=== PATIENT | female | born 1965 | race Two or more races ===

== ENCOUNTER 2018-05-01 14:13 | Emergency (ER) | payer MEDICARE, OTHER ==
[~2018-05-01] VITALS: Ht 165.1 cm; Wt 99.8 kg
[2018-05-01 14:36] VITALS: BP 130/80
--- NOTE | 2018-05-01 15:35 | Emergency Room Report ---
History of Present Illness General Chief Complaint: Female Urogenital Problems Source: Patient Present Illness HPI 52-year-old female presents to the emergency department complaining of urinary urgency and dysuria 3 days. Patient also reports that today while at work she had a presyncope feeling and felt palpitations. Patient denies history of cardiac problems she denies nausea, vomiting, shortness of breath, difficulty breathing, recent travel or ill contacts. Patient denies chest pain. Patient denies abdominal pain or tenderness she denies hematuria she denies history of diabetes. Denies polydipsia. Allergies: Uncoded Allergies: ERYTHROMYCIN (Allergy, Unknown, 05/01/18) SULFA (Allergy, Unknown, 05/01/18) Patient History Past Surgical History: none Pertinent Family History: none Immunizations: UTD Reviewed Nursing Documentation: PMH: Agreed; PSxH: Agreed Nursing Documentation-PMH Past Medical History: No History, Except For Hx Cardiac Problems: No - OSTEO ARTHRITIS History Of Psychiatric Problem: Yes - BI-POLAR Hx Seizures: Yes Review of Systems All Other Systems: negative except mentioned in HPI Physical Exam Vital Signs Date Time Temp Pulse Resp B/P (MAP) Pulse Ox O2 Delivery O2 Flow Rate FiO2 05/01/18 14:28 98.4 84 18 130/80 94 Room Air 98.4 Sp02 EP Interpretation: reviewed, normal General Appearance: no apparent distress, alert, GCS 15, non-toxic Head: normocephalic, atraumatic Eyes: bilateral eye normal inspection, bilateral eye PERRL ENT: hearing grossly normal, normal voice Neck: full range of motion Respiratory: chest non-tender, lungs clear, normal breath sounds, speaking full sentences Cardiovascular #1: regular rate, rhythm, normal capillary refill Gastrointestinal: normal bowel sounds, non tender, soft Rectal: deferred Genitourinary: normal inspection, no CVA tenderness Musculoskeletal: back normal, gait/station normal, normal range of motion, non- tender Neurologic: alert, oriented x3, responsive, motor strength/tone normal, sensory intact, normal gait, speech normal, grossly normal Psychiatric: judgement/insight normal Skin: normal color, no rash, warm/dry, well hydrated Medical Decision Making PA Attestation Dr. Edgar is my supervising Physician whom patient management has been discussed with. Diagnostic Impression: Primary Impression: Urinary frequency Additional Impressions: UTI (urinary tract infection) Qualified Codes: N30.00 - Acute cystitis without hematuria Palpitations Dysuria ER Course 52-year-old female presents to the emergency department complaining of urinary urgency and dysuria 3 days. Patient also reports that today while at work she had a presyncope feeling and felt palpitations. Patient denies history of cardiac problems she denies nausea, vomiting, shortness of breath, difficulty breathing, recent travel or ill contacts. Patient denies chest pain. Patient denies abdominal pain or tenderness she denies hematuria she denies history of diabetes. Denies polydipsia. Ddx considered but are not limited to UTi , Pyelo, STI, Stone, Cystitis Vital signs: are WNL, pt. is afebrile H&PE are most consistent with UTI ORDERS: - UA labs are attached -EKG : 74 NSR ED INTERVENTIONS: -Pyridium PO DISCHARGE: At this time pt. is stable for d/c to home. Will provide printed patient care instructions, and any necessary prescriptions. Care plan and follow up instructions have been discussed with the patient prior to discharge. Labs Test 05/01/18 16:20 Urine Color Yellow Urine Appearance Cloudy Urine pH 7 (4.5-8.0) Urine Specific Staples 1.010 (1.005-1.035) Urine Protein 2+ (NEGATIVE) Urine Glucose (UA) Negative (NEGATIVE) Urine Ketones 1+ (NEGATIVE) Urine Occult Blood 1+ (NEGATIVE) Urine Nitrite Negative (NEGATIVE) Urine Bilirubin Negative (NEGATIVE) Urine Urobilinogen Normal MG/DL (0.0-1.0) Urine Leukocyte Esterase 3+ (NEGATIVE) Urine RBC 2-4 /HPF (0 - 2) Urine WBC 30-40 /HPF (0 - 2) Urine Squamous Epithelial Cells Many /LPF (NONE/OCC) Urine Bacteria Many /HPF (NONE) EKG Diagnostic Results EP Interpretation: Dr. Edgar Rate: normal - 74 bpm Rhythm: NSR ST Segments: no acute changes ASA given to the pt in ED: No PA Scribe Text This Interpretation was scribed by RUSTY Cobos. Last Vital Signs Date Time Temp Pulse Resp B/P (MAP) Pulse Ox O2 Delivery O2 Flow Rate FiO2 05/01/18 14:36 98.4 84 18 130/80 94 Room Air 98.4 Disposition: HOME, SELF-CARE Condition: Stable Scripts Phenazopyridine Hcl* (PYRIDIUM*) 200 Mg Tablet 200 MG ORAL THREE TIMES A DAY, #9 TAB 0 Refills Prov: Claudette Cobos 05/01/18 Nitrofurantoin Monohyd/M-Cryst* (MACROBID 100 MG*) 100 Mg Capsule 100 MG ORAL EVERY 12 HOURS for 5 Days, #10 CAP Prov: Claudette Cobos 05/01/18 Referrals: [facility] (PCP) Patient Instructions: Urinary Tract Infection Additional Instructions: Take medications as directed. Follow up with a Primary Care Provider in 3-5 days, even if your symptoms have resolved. --Please review list of primary care clinics, if you do not already have a primary care provider Return sooner to ED if new symptoms occur, or current symptoms become worse. - Please note that this Emergency Department Report was dictated using [employer]gis application developer technology software, occasionally this can lead to erroneous entry secondary to interpretation by the dictation equipment. Claudette Cobos May 01, 2018 15:35
[2018-05-01] MEDS ORDERED: Phenazopyridine 200mg tab ORAL ONE (15:45)
[2018-05-01 17:01] LABS: APPEARANCE,URINE CLOUDY; BILIRUBIN, URINE NEGATIVE (NEGATIVE); COLOR,URINE YELLOW; GLUCOSE, URINE (UA) NEGATIVE (NEGATIVE); KETONES,URINE 1+ (NEGATIVE); LEUKOCYTE ESTERASE ,URINE 3+ (NEGATIVE); NITRITE,URINE NEGATIVE (NEGATIVE); PH,URINE 7 (4.5-8.0); PROTEIN,URINE 2+ (NEGATIVE); UROBILINOGEN,URINE NORMAL MG/DL (0.0-1.0)
[2018-05-01] MEDS ORDERED: PHENAZOPYRIDIN200 MG ORAL (17:04)
[2018-05-01] MEDS ORDERED: NITROFURANTOIN100 M2 ORAL (17:04)
[2018-05-01 18:10] VITALS: BP 139/73
[2018-05-01 18:14] VITALS: BP 139/73
--- NOTE | 2018-05-02 12:20 | Cardiology Report ---
APPROVED REPORT EKG Measurement Heart [id number] Normal sinus rhythm Normal ECG
[2018-05-02] MEDS ORDERED: PHENAZOPYRIDIN200 MG ORAL (12:55)
== END 2018-05-01 18:16 | disposition home or self-care (01) ==
LOC: EMR 14:41
DX: N39.0 Urinary tract infection, site not specified (principal); R00.2 Palpitations
CPT/HCPCS: 81003; 87086; 93005; 99284

== ENCOUNTER 2018-05-16 14:22 | Emergency (ER) | payer MEDICARE, OTHER ==
[~2018-05-16] VITALS: Ht 165.1 cm; Wt 99.8 kg
[~2018-05-16 14:22] MED LIST: NITROFURANTOIN100 M2 ORAL; PHENAZOPYRIDIN200 MG ORAL
[2018-05-16 14:40] VITALS: BP 115/73
--- NOTE | 2018-05-16 15:02 | Emergency Room Report ---
History of Present Illness General Chief Complaint: Upper Respiratory Illness Source: Patient Present Illness HPI 32-year-old female presents emergency department complaining of nasal congestion , rhinorrhea, cough with significant amount of mucus. Patient denies fevers, chills , history of asthma/COPD. Pt. denies recent travel, ill contacts, neck pain/stiffness, or photophobia. denies ST or ear pain. Allergies: Uncoded Allergies: EGGPLANT (Allergy, Unknown, 05/16/18) ERYTHROMYCIN (Allergy, Unknown, 05/01/18) SULFA (Allergy, Unknown, 05/01/18) Patient History Past Medical History: see triage record Past Surgical History: none Pertinent Family History: none Last Menstrual Period: 11/21/2014 Now: No Reviewed Nursing Documentation: PMH: Agreed; PSxH: Agreed Nursing Documentation-PMH Past Medical History: No History, Except For Hx Cardiac Problems: No - OSTEOARTHRITIS, psoriasis Hx Hypertension: No Hx Pacemaker: No Hx Asthma: No - Bronchitis Hx COPD: No Hx Diabetes: No Hx Cancer: No Hx Gastrointestinal Problems: No Hx Dialysis: No History Of Psychiatric Problem: Yes - OCD, PTSD, Bipolar Hx Neurological Problems: No Hx Cerebrovascular Accident: No Hx Seizures: Yes Review of Systems All Other Systems: negative except mentioned in HPI Physical Exam Vital Signs Date Time Temp Pulse Resp B/P (MAP) Pulse Ox O2 Delivery O2 Flow Rate FiO2 05/16/18 14:30 98.8 89 16 115/73 94 Room Air 98.8 Sp02 EP Interpretation: reviewed, normal General Appearance: no apparent distress, alert, GCS 15, non-toxic Head: normocephalic, atraumatic Eyes: bilateral eye normal inspection, bilateral eye PERRL ENT: hearing grossly normal, normal pharynx, normal voice, TMs + canals normal , uvula midline, nasal congestion Neck: full range of motion, no meningismus, no bony tend Respiratory: chest non-tender, lungs clear, normal breath sounds, speaking full sentences Cardiovascular #1: regular rate, rhythm Musculoskeletal: back normal, gait/station normal, normal range of motion, non- tender Neurologic: alert, oriented x3, responsive, motor strength/tone normal, sensory intact, speech normal, grossly normal Psychiatric: judgement/insight normal Skin: normal color, no rash, warm/dry, well hydrated Lymphatic: no adenopathy Medical Decision Making PA Attestation Dr. Meneses is my supervising Physician whom patient management has been discussed with. Diagnostic Impression: Primary Impression: Bronchitis, allergic Qualified Codes: J45.901 - Unspecified asthma with (acute) exacerbation Additional Impression: Post-nasal drainage ER Course 32-year-old female presents emergency department complaining of nasal congestion , rhinorrhea, cough with significant amount of mucus. Patient denies fevers, chills , history of asthma/COPD. Pt. denies recent travel, ill contacts, neck pain/stiffness, or photophobia. denies ST or ear pain. Ddx considered but are not limited to URI, pneumonia, PE, strep pharyngitis, meningitis. Vital signs: Pt.is afebrile VS are WNL H&PE are most consistent with bronchitis ORDERS: none required at this time, the diagnosis is clinical ED INTERVENTIONS: None required at this time. DISCHARGE: At this time pt. is stable for d/c to home. Will provide printed patient care instructions, and any necessary prescriptions. Care plan and follow up instructions have been discussed with the patient prior to discharge. Last Vital Signs Date Time Temp Pulse Resp B/P (MAP) Pulse Ox O2 Delivery O2 Flow Rate FiO2 05/16/18 14:40 89 16 Room Air 05/16/18 14:40 98.8 115/73 94 98.8 Disposition: HOME, SELF-CARE Condition: Stable Scripts Loratadine/Pseudoephedrine (CLARITIN-D 24 HOUR TABLET) 1 Each Tab.er.24h 1 TAB PO DAILY, #14 TAB Prov: Claudette Cobos 05/16/18 Guaifenesin (Guaifenesin) 1,200 Mg Tab.er.12h 1200 MG PO BID, #10 TAB Prov: Claudette Cobos 05/16/18 Benzonatate* (TESSALON PERLE*) 100 Mg Capsule 100 MG ORAL THREE TIMES A DAY, #20 PERLE Prov: Claudette Cobos 05/16/18 Codeine/Promethazine Hcl* (PROMETHAZINE-CODEINE SYRUP*) 118 Ml Syrup 5 ML ORAL Q6H PRN for For Cough, #120 ML 0 Refills Prov: Claudette Cobos 05/16/18 Departure Forms: Return to Work Return to Work Date: May 20, 2018 Work Restrictions: None Patient Instructions: Cough, Adult, [id number] Additional Instructions: Take medications as directed. Follow up with a Primary Care Provider in 3-5 days, even if your symptoms have resolved. --Please review list of primary care clinics, if you do not already have a primary care provider Return sooner to ED if new symptoms occur, or current symptoms become worse. Do not drink alcohol, drive, or operate heavy machinery while taking Cough Syrup as this may cause drowsiness. - Please note that this Emergency Department Report was dictated using [employer] engineering professor technology software, occasionally this can lead to erroneous entry secondary to interpretation by the dictation equipment. Claudette Cobos May 16, 2018 15:02
[2018-05-16] MEDS ORDERED: GUAIFENESIN1200 MG PO (15:04)
[2018-05-16] MEDS ORDERED: TESSALON PERLE100 MG ORAL (15:04)
[2018-05-16] MEDS ORDERED: CLARITIN-D 241 EACH PO (15:04)
[2018-05-16] MEDS ORDERED: PROMETHAZINE-C118 M1 ORAL (15:04)
[2018-05-16 15:11] VITALS: BP 115/73
== END 2018-05-16 15:12 | disposition home or self-care (01) ==
LOC: EMR 14:53
DX: J45.909 Unspecified asthma, uncomplicated (principal); R09.82 Postnasal drip; Z91.018 Allergy to other foods; Z88.1 Allergy status to other antibiotic agents; Z88.2 Allergy status to sulfonamides; F42.9 Obsessive-compulsive disorder, unspecified; F43.10 Post-traumatic stress disorder, unspecified; F31.9 Bipolar disorder, unspecified
CPT/HCPCS: 99283

== ENCOUNTER 2018-05-21 21:18 | Emergency (ER) | payer MEDICARE, OTHER ==
[~2018-05-21] VITALS: Ht 165.1 cm; Wt 99.8 kg
[~2018-05-21 21:18] MED LIST changes: +CLARITIN-D 241 EACH PO; +GUAIFENESIN1200 MG PO; +PROMETHAZINE-C118 M1 ORAL; +TESSALON PERLE100 MG ORAL
--- NOTE | 2018-05-21 21:35 | Emergency Room Report ---
History of Present Illness General Chief Complaint: Dyspnea/Respdistress Source: Patient Present Illness HPI Patient presents with complaints of sensation of shortness of breath patient reports cough and congestion over the past 5 days She was here recently was put on anti-cough medicine She feels that she had also lost her voice that time however that part is improving She feels that she cannot get a full cough Denies any fevers denies any recent travel Denies any chest pain Reports that she had done a breathing study several years ago in [place] was told that she was at 90% Denies any calf pain or swelling also has some nasal congestion that has been ongoing as well Allergies: Uncoded Allergies: EGGPLANT (Allergy, Unknown, 05/16/18) ERYTHROMYCIN (Allergy, Unknown, 05/01/18) SULFA (Allergy, Unknown, 05/01/18) Patient History Past Medical History: see triage record Pertinent Family History: none Reviewed Nursing Documentation: PMH: Agreed; PSxH: Agreed Nursing Documentation-PMH Hx Cardiac Problems: No - OSTEOARTHRITIS, psoriasis Hx Hypertension: No Hx Pacemaker: No Hx Asthma: No - Bronchitis Hx COPD: No Hx Diabetes: No Hx Cancer: No Hx Gastrointestinal Problems: No Hx Dialysis: No Hx Neurological Problems: No Hx Cerebrovascular Accident: No Hx Seizures: Yes Review of Systems All Other Systems: negative except mentioned in HPI Physical Exam Vital Signs Date Time Temp Pulse Resp B/P (MAP) Pulse Ox O2 Delivery O2 Flow Rate FiO2 05/21/18 21:25 98.9 84 16 125/80 98 Room Air 99.0 Sp02 EP Interpretation: reviewed, normal General Appearance: well appearing, no apparent distress Head: normocephalic, atraumatic Eyes: bilateral eye PERRL, bilateral eye EOMI ENT: hearing grossly normal, normal pharynx, TMs + canals normal, uvula midline Neck: full range of motion, supple, no meningismus, no bony tend Respiratory: lungs clear, normal breath sounds, no rhonchi, no respiratory distress, no retraction, no accessory muscle use Cardiovascular #1: normal peripheral pulses, regular rate, rhythm, no edema, no gallop, no JVD, no murmur Gastrointestinal: normal bowel sounds, non tender, soft, no mass, no organomegaly, non-distended, no guarding, no hernia, no pulsatile mass, no rebound Genitourinary: no CVA tenderness Musculoskeletal: normal inspection Neurologic: oriented x3, responsive, senior sql server developer III-XII nml as tested, motor strength/ tone normal, sensory intact Psychiatric: mood/affect normal Skin: normal color, no rash, warm/dry, palpation normal Lymphatic: normal inspection, no adenopathy Medical Decision Making Diagnostic Impression: Primary Impression: URI (upper respiratory infection) ER Course Patient is a fairly complex patient with multiple differential to consideration including but not limited to cardiac cardiopulmonary and vascular emergencies On the patient's last presentation imaging was not obtained therefore chest x- ray was taken Patient remains to saturate well on room air and remains appropriate with respiratory effort X-ray is not showing any obvious acute disease there is some poor imaging that she threw the left lower lobe area possibly secondary to overlying body habitus Otherwise patient continues to have appropriate respirations And at this time will have continued outpatient attempt Follow closely with primary physician return with any worsening symptoms Chest X-Ray Diagnostic Results Chest X-Ray Diagnostic Results : Chest X-Ray Ordered: Yes # of Views/Limited/Complete: 1 View Indication: Shortness of Breath EP Interpretation: Yes Interpretation: no consolidation, no effusion, no pneumothorax, other - Lower lobes difficult to evaluate Impression: No acute disease Electronically Signed by: Xochitl Llanes DO Last Vital Signs Date Time Temp Pulse Resp B/P (MAP) Pulse Ox O2 Delivery O2 Flow Rate FiO2 05/21/18 21:25 98.9 84 16 125/80 98 Room Air 99.0 Status: improved Disposition: HOME, SELF-CARE Condition: Stable Scripts Prednisone* (PREDNISONE*) 20 Mg Tablet 20 MG ORAL BID, #8 TAB Prov: Xochitl Llanes DO 05/21/18 Albuterol Sulfate* (ALBUTEROL SULFATE MDI*) 8.5 Gm Hfa.aer.ad 2 PUFF INH Q6H, #1 EA 0 Refills Prov: Xochitl Llanes DO 05/21/18 Additional Instructions: Patient is provided with the discharge instructions notified to follow up with primary doctor in the next 2-3 days otherwise return to the er with any worsening symptoms. Please note that this report is being documented using [employer] technology. This can lead to erroneous entry secondary to incorrect interpretation by the dictating instrument. Xochitl Llanes DO May 21, 2018 21:35
[2018-05-21 22:00] VITALS: BP 126/77
[2018-05-21] MEDS ORDERED: PREDNISONE20 MG ORAL (22:49)
[2018-05-21] MEDS ORDERED: ALBUTEROL SULF8.5 GM INH (22:49)
[2018-05-21 23:03] VITALS: BP 133/79
--- NOTE | 2018-05-22 09:36 | Diagnostic Imaging Report ---
Indication: Shortness of breath Technique: One view of the chest Comparison: none Findings: Lungs and pleural spaces are clear. The heart is borderline enlarged. There is right hilar fullness, mass or adenopathy not excludable. Impression: No acute process Borderline cardiomegaly Right hilar fullness, mass or adenopathy not excludable. Recommend comparison with any prior exams that may be available, consider CT scan for further evaluation if indicated. This was discussed by phone with Dr. Carroll in the emergency room at the time of interpretation
--- NOTE | 2018-05-22 09:57 | Emergency Room Report ---
Physical Exam Vital Signs Date Time Temp Pulse Resp B/P (MAP) Pulse Ox O2 Delivery O2 Flow Rate FiO2 05/21/18 21:25 98.9 84 16 125/80 98 Room Air 99.0 Medical Decision Making Diagnostic Impression: Primary Impression: URI (upper respiratory infection) ER Course I took report CXR (possible) discrepancy from last night. Right hilar fullness, could be adenopathy. I called and d/w patient herself. Recommended repeat CXR 2-3 weeks. Pt. has a PMD and will either return here for CXR or PMD. Last Vital Signs Date Time Temp Pulse Resp B/P (MAP) Pulse Ox O2 Delivery O2 Flow Rate FiO2 05/21/18 23:03 99.8 88 17 133/79 96 Room Air 99.8 88 Disposition: HOME, SELF-CARE Condition: Stable Scripts Prednisone* (PREDNISONE*) 20 Mg Tablet 20 MG ORAL BID, #8 TAB Prov: TomyXochitl garcia 05/21/18 Albuterol Sulfate* (ALBUTEROL SULFATE MDI*) 8.5 Gm Hfa.aer.ad 2 PUFF INH Q6H, #1 EA 0 Refills Prov: ShraddhaXochitl DOE 05/21/18 Referrals: NON PHYSICIAN (PCP) Patient Instructions: Upper Respiratory Infection, Adult Additional Instructions: Patient is provided with the discharge instructions notified to follow up with primary doctor in the next 2-3 days otherwise return to the er with any worsening symptoms. Please note that this report is being documented using [employer] technology. This can lead to erroneous entry secondary to incorrect interpretation by the dictating instrument. Phill Carroll M.D. May 22, 2018 09:57
== END 2018-05-21 23:03 | disposition home or self-care (01) ==
LOC: EMR 21:55
DX: J06.9 Acute upper respiratory infection, unspecified (principal); L40.9 Psoriasis, unspecified; M19.90 Unspecified osteoarthritis, unspecified site; Z88.1 Allergy status to other antibiotic agents; Z88.2 Allergy status to sulfonamides; Z91.018 Allergy to other foods
CPT/HCPCS: 71045; 99283

== ENCOUNTER 2018-05-28 14:17 | Emergency (ER) | payer MEDICARE, OTHER ==
[~2018-05-28] VITALS: Ht 165.1 cm; Wt 113.4 kg
[~2018-05-28 14:17] MED LIST changes: +ALBUTEROL SULF8.5 GM INH; +PREDNISONE20 MG ORAL
[2018-05-28] MEDS ORDERED: BENZTROPINE ME0.5 MG PO (14:24)
[2018-05-28] MEDS ORDERED: ABILIFY2 MG ORAL (14:24)
[2018-05-28] MEDS ORDERED: OTEZLA1 EAC1 PO (14:24)
[2018-05-28] MEDS ORDERED: Isovue-370 150ml vial INJ PRN (14:45)
--- NOTE | 2018-05-28 14:58 | Emergency Room Report ---
History of Present Illness General Chief Complaint: Upper Respiratory Illness Source: Patient, Medical Record Present Illness HPI 52-year-old female presents with shortness of breath and chest pain on exertion has progressively gotten worse over the past 2 weeks. States that initially this presented with nasal congestion and cough and she has a history of recurring bronchitis and now states her symptoms have progressively gotten worse despite taking medications prescribed to her from the ER. Patient's currently taking Tessalon and Claritin without any improvement of her symptoms. The patient was seen here yesterday where she had a chest x-ray which was negative. Patient states her symptoms got worse today now she is having chest pain at rest. States that her symptoms are worse with exertion and better with rest. Patient states that she has a history of psychiatric disorders and takes Abilify with good compliance without any adverse reactions but denies that this may be due to her anxiety. Patient denies any cardiac history in herself or her family members or her 6 siblings. Allergies: Coded Allergies: ERYTHROMYCIN BASE (Verified Allergy, Unknown, 05/28/18) SULFA (SULFONAMIDE ANTIBIOTICS) (Unverified Allergy, Unknown, 05/28/18) Uncoded Allergies: EGGPLANT (Allergy, Unknown, 05/16/18) Patient History Past Medical History: see triage record Past Surgical History: none Pertinent Family History: none Reviewed Nursing Documentation: PMH: Agreed; PSxH: Agreed Nursing Documentation-PMH Past Medical History: No History, Except For Hx Cardiac Problems: No - OSTEOARTHRITIS, psoriasis Hx Hypertension: No Hx Pacemaker: No Hx Asthma: No - Bronchitis Hx COPD: No Hx Diabetes: No Hx Cancer: No Hx Gastrointestinal Problems: No Hx Dialysis: No Hx Neurological Problems: No Hx Cerebrovascular Accident: No Hx Seizures: Yes Review of Systems All Other Systems: negative except mentioned in HPI Physical Exam Vital Signs Date Time Temp Pulse Resp B/P (MAP) Pulse Ox O2 Delivery O2 Flow Rate FiO2 05/28/18 14:20 98.7 102 18 135/77 92 Room Air 98.8 Sp02 EP Interpretation: reviewed, normal General Appearance: no apparent distress, alert, GCS 15, non-toxic Head: normocephalic, atraumatic Eyes: bilateral eye normal inspection, bilateral eye PERRL ENT: hearing grossly normal, normal pharynx, no angioedema, normal voice Neck: full range of motion, supple/symm/no masses Respiratory: chest non-tender, lungs clear, normal breath sounds, no rhonchi, no respiratory distress, no retraction, no accessory muscle use, no wheezing, speaking full sentences, other - anterior chest wall tenderness but patient states her symptomatic chest pain feels different Cardiovascular #1: regular rate, rhythm, no edema, no gallop, normal capillary refill Musculoskeletal: back normal, gait/station normal, normal range of motion, non- tender Neurologic: alert, oriented x3, responsive, motor strength/tone normal, sensory intact, speech normal Psychiatric: judgement/insight normal, memory normal, mood/affect normal, no suicidal/homicidal ideation Skin: normal color, no rash, warm/dry, well hydrated Medical Decision Making PA Attestation Dr. Edgar my supervising physician with whom patient management has been discussed with. Diagnostic Impression: Primary Impression: Atypical chest pain Additional Impression: Shortness of breath on exertion ER Course Pt. presents to the ED c/o chest pain shortness of breath Ddx considered but are not limited to ND, PE, Aortic Dissection, Pleurisy, Anxiety, Pneumothorax, URI, Pneumonia, Costochondritis, Herpes Zoster Vital signs: are Stable, pt. is afebrile H&PE are most consistent with Atypical Chest Pain with URI ORDERS & INTERVENTIONS: EKG shows NSR, CBC shows some leukocytosis but no signs of sepsis or anemia. The CMP shows mild hypokalemia treated with 40 MEQ of K- Chlor, The troponin and CT Angio are negative. DISCHARGE: At this time pt. is stable for d/c to home. Will provide printed patient care instructions, and any necessary prescriptions. Care plan and follow up instructions have been discussed with the patient prior to discharge. Laboratory Tests Test 05/28/18 14:52 05/28/18 16:49 White Blood Count 15.8 K/UL (4.8-10.8) H Red Blood Count 4.24 M/UL (4.20-5.40) Hemoglobin 13.6 G/DL (12.0-16.0) Hematocrit 40.1 % (37.0-47.0) Mean Corpuscular Volume 94 FL (80-99) Mean Corpuscular Hemoglobin 32.1 PG (27.0-31.0) H Mean Corpuscular Hemoglobin Concent 34.0 G/DL (32.0-36.0) Red Cell Distribution Width 11.8 % (11.6-14.8) Platelet Count 474 K/UL (150-450) H Mean Platelet Volume 4.8 FL (6.5-10.1) L Neutrophils (%) (Auto) 62.4 % (45.0-75.0) Lymphocytes (%) (Auto) 30.4 % (20.0-45.0) Monocytes (%) (Auto) 5.0 % (1.0-10.0) Eosinophils (%) (Auto) 0.8 % (0.0-3.0) Basophils (%) (Auto) 1.4 % (0.0-2.0) Sodium Level 140 MMOL/L (136-145) Potassium Level 3.1 MMOL/L (3.5-5.1) L Chloride Level 102 MMOL/L (98-107) Carbon Dioxide Level 26 MMOL/L (21-32) Anion Gap 12 mmol/L (5-15) Blood Urea Nitrogen 18 mg/dL (7-18) Creatinine 1.0 MG/DL (0.55-1.30) Estimate Glomerular Filtration Rate 58.5 mL/min (>60) Glucose Level 148 MG/DL (74-106) H Calcium Level 9.1 MG/DL (8.5-10.1) Total Bilirubin 0.2 MG/DL (0.2-1.0) Aspartate Amino Transferase (AST) 13 U/L (15-37) L Alanine Aminotransferase (ALT) 19 U/L (12-78) Alkaline Phosphatase 91 U/L (46-116) Total Creatine Kinase 210 U/L (26-308) Creatine Kinase MB 4.8 NG/ML (0.0-3.6) H Creatine Kinase MB Relative Index 2.2 Troponin I 0.000 ng/mL (0.000-0.056) Pro-B-Type Natriuretic Peptide 38 pg/mL (0-125) Total Protein 7.7 G/DL (6.4-8.2) Albumin 3.3 G/DL (3.4-5.0) L Globulin 4.4 g/dL Albumin/Globulin Ratio 0.8 (1.0-2.7) L Urine Opiates Screen Pending Urine Barbiturates Screen Pending Phencyclidine (PCP) Screen Pending Urine Amphetamines Screen Pending Urine Benzodiazepines Screen Pending Urine Cocaine Screen Pending Urine Marijuana (THC) Screen Pending EKG Diagnostic Results EKG Time: 14:38 EP Interpretation: NSR Rate: normal Rhythm: NSR ST Segments: no acute changes ASA given to the pt in ED: No CT/MRI/US Diagnostic Results CT/MRI/US Diagnostic Results : Imaging Test Ordered: CTA Chest w/ Contrast Impression Negative for acute PE or other acute throacic process. Bilateral hilar and medialstinal lymphadenopathy, as well as prominent lower mediastinal lymph node. This is nonspecific. Incidental finding of prior right adrenalectomy. Last Vital Signs Date Time Temp Pulse Resp B/P (MAP) Pulse Ox O2 Delivery O2 Flow Rate FiO2 05/28/18 15:54 98.8 80 18 130/71 96 Room Air 98.8 Status: improved Disposition: HOME, SELF-CARE Condition: Stable Scripts Levofloxacin* (LEVAQUIN*) 500 Mg Tablet 500 MG ORAL DAILY for 7 Days, #7 TAB Prov: Ten Reyes 05/28/18 Patient Instructions: Nonspecific Chest Pain, Upper Respiratory Infection, Adult Additional Instructions: Continue medications as directed. Patient is to follow up with PCP within 1-2 days. Patient should return should her symptoms persist, change or worsen over the next 8-10 hours. Ten Reyes May 28, 2018 14:58
[2018-05-28 15:19] LABS: ANION GAP 12 mmol/L (5-15); BLOOD UREA NITROGEN 18 mg/dL (7-18); CALCIUM 9.1 MG/DL (8.5-10.1); CARBON DIOXIDE 26 MMOL/L (21-32); CHLORIDE 102 MMOL/L (98-107); POTASSIUM 3.1 MMOL/L (3.5-5.1); SODIUM 140 MMOL/L (136-145)
[2018-05-28 15:20] LABS: BASOPHILS % (AUTO) 1.4 % (0.0-2.0); EOSINOPHILS % (AUTO) 0.8 % (0.0-3.0); HEMATOCRIT 40.1 % (37.0-47.0); HEMOGLOBIN 13.6 G/DL (12.0-16.0); LYMPHOCYTES % (AUTO) 30.4 % (20.0-45.0); MEAN CORPUSCULAR VOLUME 94 FL (80-99); NEUTROPHILS % (AUTO) 62.4 % (45.0-75.0); PLATELET COUNT 474 K/UL (150-450); RED BLOOD COUNT 4.24 M/UL (4.20-5.40); RED CELL DISTRIBUTION WIDTH 11.8 % (11.6-14.8); WHITE BLOOD COUNT 15.8 K/UL (4.8-10.8)
[2018-05-28 15:33] LABS: ALANINE AMINOTRANSFERASE 19 U/L (12-78); ALBUMIN 3.3 G/DL (3.4-5.0); ALBUMIN/GLOBULIN RATIO 0.8 (1.0-2.7); ALKALINE PHOSPHATASE 91 U/L (46-116); ASPARTATE AMINO TRANSFERASE 13 U/L (15-37); BILIRUBIN,TOTAL 0.2 MG/DL (0.2-1.0); CKMB 4.8 NG/ML (0.0-3.6); CREATINE KINASE 210 U/L (26-308)
[2018-05-28 15:54] VITALS: BP 130/71
--- NOTE | 2018-05-28 16:05 | Diagnostic Imaging Report ---
ndication: Chest pain Technique: IV administration nonionic contrast. Spiral acquisitions obtained from the lung bases to the lung apices. Multiplanar and 3-D reconstructions were generated. Total dose length product 1136.63 mGycm. CTDIvol(s) 33.86 mGy. Dose reduction achieved using automated exposure control Comparison: none Findings: There is good quality opacification of the pulmonary arteries. No intraluminal filling defects or other findings to suggest acute pulmonary embolus demonstrated. Normal caliber pulmonary arteries. No thoracic aortic aneurysm or dissection demonstrated. Normal branching anatomy of the great neck vessels. The included abdominal visceral vessel origins are patent and nonstenotic. No evidence of right ventricular dilatation. Normal heart size. The lungs demonstrate minimal posterior dependent atelectatic changes. No infiltrates, effusions, masses, or nodules are demonstrated. There is normal variant anatomy of an azygos lobe and fissure. There is bilateral hilar lymphadenopathy, with nodes measuring up to 2.3 cm long axis dimension. There is also mediastinal lymphadenopathy, with conglomerate subcarinal lymph nodes measuring up to 3 cm long axis dimension, as well as prominent paratracheal and prevascular space nodes. There is a prominent lower paraesophageal lymph node which measures 15 mm long axis dimension. No axillary or chest wall mass or adenopathy. Included portions of the thyroid are unremarkable. The bones are unremarkable. Included upper abdominal anatomy demonstrates evidence of prior right adrenalectomy. Impression: Negative for acute pulmonary embolus or other acute thoracic process Bilateral hilar and mediastinal lymphadenopathy, as well as prominent lower mediastinal lymph node. This is nonspecific with a long differential, including infectious or noninfectious inflammatory processes, lymphoproliferative disorder, metastatic lymphadenopathy. Correlate with clinical history and findings Incidental finding of prior right adrenalectomy The CT scanner at [facility] is accredited by the [employer] and the scans are performed using protocols designed to limit radiation exposure to as low as reasonably achievable to attain images of sufficient resolution adequate for diagnostic evaluation.
[2018-05-28] MEDS ORDERED: ZITHROMAX250 MG ORAL (17:04)
[2018-05-28] MEDS ORDERED: LEVAQUIN500 MG ORAL (17:46)
[2018-05-28 17:55] VITALS: BP 129/78
[2018-05-28 18:01] VITALS: BP 130/71
--- NOTE | 2018-05-30 00:41 | Cardiology Report ---
APPROVED REPORT EKG Measurement Heart [id number] [place] [id number] Normal sinus rhythm Possible Left atrial enlargement Borderline ECG
== END 2018-05-28 18:01 | disposition home or self-care (01) ==
LOC: EMR 16:00
DX: R07.9 Chest pain, unspecified (principal); R06.02 Shortness of breath; M19.90 Unspecified osteoarthritis, unspecified site; L40.9 Psoriasis, unspecified; Z88.2 Allergy status to sulfonamides; Z88.8 Allergy status to other drugs, medicaments and biological substances; Z91.018 Allergy to other foods; D72.829 Elevated white blood cell count, unspecified; E87.6 Hypokalemia
CPT/HCPCS: 36415; 71275; 80053; 80307; 82550; 82553; 83880; 84484; 85025; 93005; 99284; Q9967; J8499

== ENCOUNTER 2018-06-16 14:21 | Emergency (ER) | payer MEDICARE, OTHER ==
[~2018-06-16] VITALS: Ht 152.4 cm; Wt 99.8 kg
[~2018-06-16 14:21] MED LIST changes: +ABILIFY2 MG ORAL; +BENZTROPINE ME0.5 MG PO; +LEVAQUIN500 MG ORAL; +OTEZLA1 EAC1 PO; +ZITHROMAX250 MG ORAL
--- NOTE | 2018-06-16 15:30 | Diagnostic Imaging Report ---
Indication: Cough Technique: One view of the chest Comparison: 05/21/2018 Findings: Body habitus limits evaluation. Lungs and pleural spaces are grossly clear. The heart is mildly enlarged. Prominent right pulmonary hilum likely reflects lymphadenopathy reported on recent CT scan.. Findings are unchanged Impression: No acute process Cardiomegaly
[2018-06-16 15:32] VITALS: BP 137/90
[2018-06-16 15:47] LABS: ANION GAP 6 mmol/L (5-15); BLOOD UREA NITROGEN 11 mg/dL (7-18); CALCIUM 9.7 MG/DL (8.5-10.1); CARBON DIOXIDE 27 MMOL/L (21-32); CHLORIDE 104 MMOL/L (98-107); CREATININE 0.8 MG/DL (0.55-1.30); EOSINOPHILS % (AUTO) 2.6 % (0.0-3.0); HEMATOCRIT 39.8 % (37.0-47.0); HEMOGLOBIN 13.3 G/DL (12.0-16.0); LYMPHOCYTES % (AUTO) 30.6 % (20.0-45.0); MEAN CORPUSCULAR VOLUME 95 FL (80-99); MONOCYTES % (AUTO) 5.7 % (1.0-10.0); NEUTROPHILS % (AUTO) 60.1 % (45.0-75.0); PLATELET COUNT 425 K/UL (150-450); POTASSIUM 3.8 MMOL/L (3.5-5.1); RED CELL DISTRIBUTION WIDTH 11.9 % (11.6-14.8); SODIUM 137 MMOL/L (136-145)
[2018-06-16 16:00] LABS: ALANINE AMINOTRANSFERASE 29 U/L (12-78); ALBUMIN 3.4 G/DL (3.4-5.0); ALBUMIN/GLOBULIN RATIO 0.8 (1.0-2.7); ALKALINE PHOSPHATASE 98 U/L (46-116); ASPARTATE AMINO TRANSFERASE 19 U/L (15-37); BILIRUBIN,TOTAL 0.3 MG/DL (0.2-1.0); CKMB 3.7 NG/ML (0.0-3.6); CREATINE KINASE 170 U/L (26-308)
--- NOTE | 2018-06-16 16:23 | Emergency Room Report ---
History of Present Illness General Chief Complaint: Dizziness Source: Patient Present Illness HPI This patient has multiple complaints. She states she was seen for the same symptoms about 2 weeks ago. She states that time she is unsure what symptoms are new symptoms are old because she has a lot of chronic symptoms. She complains of ongoing cough and intermittent lightheadedness for the past month. She also has a sensation of shortness of breath and pain in her chest. She states the symptoms have been ongoing. She denies fever or chills. She denies nausea or vomiting. She has no other complaints. Allergies: Coded Allergies: ERYTHROMYCIN BASE (Verified Allergy, Unknown, 05/28/18) SULFA (SULFONAMIDE ANTIBIOTICS) (Unverified Allergy, Unknown, 05/28/18) Uncoded Allergies: EGGPLANT (Allergy, Unknown, 05/16/18) Patient History Past Medical History: see triage record Now: No Reviewed Nursing Documentation: PMH: Agreed; PSxH: Agreed Nursing Documentation-PMH Past Medical History: No History, Except For Hx Cardiac Problems: No - OSTEOARTHRITIS, psoriasis Hx Hypertension: No Hx Pacemaker: No Hx Asthma: No - Bronchitis Hx COPD: No Hx Diabetes: No Hx Cancer: No Hx Gastrointestinal Problems: No Hx Dialysis: No Hx Neurological Problems: No Hx Cerebrovascular Accident: No Hx Seizures: Yes Review of Systems All Other Systems: negative except mentioned in HPI Physical Exam Vital Signs Date Time Temp Pulse Resp B/P (MAP) Pulse Ox O2 Delivery O2 Flow Rate FiO2 06/16/18 14:26 98.0 99 20 143/85 96 Room Air 98.1 Sp02 EP Interpretation: reviewed, normal General Appearance: no apparent distress, alert, GCS 15, non-toxic Head: normocephalic, atraumatic Eyes: bilateral eye normal inspection, bilateral eye PERRL ENT: hearing grossly normal, normal pharynx, no angioedema, normal voice Neck: full range of motion, supple/symm/no masses Respiratory: chest non-tender, lungs clear, normal breath sounds, no respiratory distress, no retraction, no accessory muscle use, speaking full sentences Cardiovascular #1: regular rate, rhythm, no edema Gastrointestinal: normal bowel sounds, non tender, soft, non-distended, no guarding, no rebound Rectal: deferred Musculoskeletal: back normal, gait/station normal, normal range of motion, non- tender Neurologic: alert, oriented x3, responsive, motor strength/tone normal, sensory intact, speech normal Psychiatric: judgement/insight normal, memory normal, mood/affect normal, no suicidal/homicidal ideation Skin: normal color, no rash, warm/dry, well hydrated Medical Decision Making Diagnostic Impression: Primary Impression: URI (upper respiratory infection) ER Course This patient has a clinical presentation with upper respiratory tract infection. The evaluation was very reassuring with a normal lung exam, no respiratory distress, normal pulse oximetry. I am not concerned for pneumonia in this patient. The patient's chest x-ray is unremarkable. EKG is negative. Laboratory workup to include CBC, CMP and cardiac enzymes are also within normal limits. I reviewed the patient's CT today of her chest that she received May 28 and it was negative other than nonspecific lymphadenopathy. The patient was educated to follow-up on this with her primary care physician and possibly get a repeat CT scan in 6 months.. I do not feel the need to repeat this imaging. This is most likely viral and will not need antibiotic therapy. I will treat supportively with cough suppressants and I'll add an inhaler. No emergency medical condition was identified. The patient is given close return precautions and follow-up instructions. Laboratory Tests Test 06/16/18 15:20 White Blood Count 10.0 K/UL (4.8-10.8) Red Blood Count 4.20 M/UL (4.20-5.40) Hemoglobin 13.3 G/DL (12.0-16.0) Hematocrit 39.8 % (37.0-47.0) Mean Corpuscular Volume 95 FL (80-99) Mean Corpuscular Hemoglobin 31.7 PG (27.0-31.0) H Mean Corpuscular Hemoglobin Concent 33.4 G/DL (32.0-36.0) Red Cell Distribution Width 11.9 % (11.6-14.8) Platelet Count 425 K/UL (150-450) Mean Platelet Volume 4.8 FL (6.5-10.1) L Neutrophils (%) (Auto) 60.1 % (45.0-75.0) Lymphocytes (%) (Auto) 30.6 % (20.0-45.0) Monocytes (%) (Auto) 5.7 % (1.0-10.0) Eosinophils (%) (Auto) 2.6 % (0.0-3.0) Basophils (%) (Auto) 1.0 % (0.0-2.0) Sodium Level 137 MMOL/L (136-145) Potassium Level 3.8 MMOL/L (3.5-5.1) Chloride Level 104 MMOL/L (98-107) Carbon Dioxide Level 27 MMOL/L (21-32) Anion Gap 6 mmol/L (5-15) Blood Urea Nitrogen 11 mg/dL (7-18) Creatinine 0.8 MG/DL (0.55-1.30) Estimate Glomerular Filtration Rate > 60 mL/min (>60) Glucose Level 100 MG/DL (74-106) Calcium Level 9.7 MG/DL (8.5-10.1) Total Bilirubin 0.3 MG/DL (0.2-1.0) Aspartate Amino Transferase (AST) 19 U/L (15-37) Alanine Aminotransferase (ALT) 29 U/L (12-78) Alkaline Phosphatase 98 U/L (46-116) Total Creatine Kinase 170 U/L (26-308) Creatine Kinase MB 3.7 NG/ML (0.0-3.6) H Creatine Kinase MB Relative Index 2.1 Troponin I 0.000 ng/mL (0.000-0.056) Total Protein 7.7 G/DL (6.4-8.2) Albumin 3.4 G/DL (3.4-5.0) Globulin 4.3 g/dL Albumin/Globulin Ratio 0.8 (1.0-2.7) L EKG Diagnostic Results Rate: normal Rhythm: NSR ST Segments: no acute changes Rhythm Strip Diag. Results EP Interpretation: yes Rate: 90's Rhythm: NSR, no PVC's, no ectopy Chest X-Ray Diagnostic Results Chest X-Ray Diagnostic Results : Chest X-Ray Ordered: Yes # of Views/Limited/Complete: 1 View Indication: Shortness of Breath Interpretation: no consolidation, no effusion, no pneumothorax, no acute cardiopulmonary disease Impression: No acute disease Electronically Signed by: Kiko Last Vital Signs Date Time Temp Pulse Resp B/P (MAP) Pulse Ox O2 Delivery O2 Flow Rate FiO2 06/16/18 15:32 98.1 80 20 137/90 96 Room Air 98.1 Status: improved Disposition: HOME, SELF-CARE Condition: Improved Referrals: NON PHYSICIAN (PCP) Dunia Edgar DO Jun 16, 2018 16:22
[2018-06-16] MEDS ORDERED: ALBUTEROL SULF8.5 GM INH (16:28)
[2018-06-16] MEDS ORDERED: ROBITUSSIN COU118 M1 PO (16:28)
[2018-06-16 16:44] VITALS: BP 143/67
--- NOTE | 2018-06-17 14:47 | Cardiology Report ---
APPROVED REPORT EKG Measurement Heart [id number] Normal sinus rhythm Normal ECG
== END 2018-06-16 16:44 | disposition home or self-care (01) ==
LOC: EMR 14:45
DX: J06.9 Acute upper respiratory infection, unspecified (principal); R42 Dizziness and giddiness; Z88.2 Allergy status to sulfonamides; Z91.018 Allergy to other foods; Z88.1 Allergy status to other antibiotic agents
CPT/HCPCS: 36415; 71045; 80053; 82550; 82553; 84484; 85025; 93005; 99283

== ENCOUNTER 2018-08-11 07:54 | Emergency (ER) | payer MEDICARE, OTHER ==
[~2018-08-11] VITALS: Ht 165.1 cm; Wt 104.8 kg
[~2018-08-11 07:54] MED LIST changes: +ROBITUSSIN COU118 M1 PO
--- NOTE | 2018-08-11 08:22 | Emergency Room Report ---
History of Present Illness General Chief Complaint: General Complaint Source: Patient Present Illness HPI Patient presents with coughing up blood this morning. She has chronic bronchitis. No phlegm in blood. Less than teaspoon. No fevers, chills, sore throat, sinus problems. She chronically has phlegm. This has not changed. No wheezing. She was told in the past that she has enlarged lymph nodes plain x-ray in the past. She denies any fever. There's some mild chest pain. Though she stated the pain was minimal to me, reported 05/16 to [facility]. States pain is pressure. Psoriasis. Treated on medication and controlled. No NVD, melena, joint pain, trauma, headache. On psychiatric meds and stable. 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 Nursing Documentation: PMH: Agreed; PSxH: Agreed Nursing Documentation-PMH Past Medical History: No History, Except For Hx Cardiac Problems: No - OSTEOARTHRITIS, psoriasis Hx Hypertension: No Hx Pacemaker: No Hx Asthma: No - Bronchitis Hx COPD: No Hx Diabetes: No Hx Cancer: No Hx Gastrointestinal Problems: No Hx Dialysis: No Hx Neurological Problems: No Hx Cerebrovascular Accident: No Hx Seizures: Yes Review of Systems All Other Systems: negative except mentioned in HPI Physical Exam Vital Signs Date Time Temp Pulse Resp B/P (MAP) Pulse Ox O2 Delivery O2 Flow Rate FiO2 08/11/18 07:56 97.9 83 17 120/77 98 Room Air Sp02 EP Interpretation: reviewed, normal General Appearance: well appearing, no apparent distress, GCS 15 Head: normocephalic, atraumatic Eyes: bilateral eye normal inspection, bilateral eye PERRL ENT: moist mucus membranes Neck: supple Respiratory: chest non-tender, lungs clear, normal breath sounds Cardiovascular #1: regular rate, rhythm, no edema Cardiovascular #2: 2+ radial (R) Gastrointestinal: normal inspection, normal bowel sounds, non tender, no mass, non-distended Musculoskeletal: back normal, gait/station normal, normal range of motion, no calf tenderness Neurologic: alert, oriented x3 Psychiatric: mood/affect normal Skin: normal inspection, warm/dry Medical Decision Making Diagnostic Impression: Primary Impression: Hemoptysis Additional Impression: Bronchitis ER Course Patient presents with hemoptysis. DDX: bronchitis, bronchiectasis, inflammatory lung condition, mass PE amongst others. VS and exam against PE. EKG and CXR indicated. CXR with slight enlarged hilar nodes, no infiltrate or mass. EKG NSR no injury. Patient without continued coughing of blood. As invasive bacterial process of concern with hemoptysis, antibiotics indicated. Patient stable for outpatient observation and treatment. EKG Diagnostic Results Rate: normal Rhythm: NSR ST Segments: no acute changes Rhythm Strip Diag. Results EP Interpretation: yes Rhythm: NSR, no PVC's, no ectopy Chest X-Ray Diagnostic Results Chest X-Ray Diagnostic Results : Chest X-Ray Ordered: Yes # of Views/Limited/Complete: 1 View Indication: Other EP Interpretation: Yes Interpretation: no consolidation, no effusion, no pneumothorax, other - increased nodes Impression: Other Electronically Signed by: Pete Meneses MD Last Vital Signs Date Time Temp Pulse Resp B/P (MAP) Pulse Ox O2 Delivery O2 Flow Rate FiO2 08/11/18 10:22 97.8 22 119/75 98 Room Air 08/11/18 08:30 83 Status: unchanged Disposition: HOME, SELF-CARE Condition: Stable Scripts Dextromethorphan Hb/Doxylamine (ROBITUSSIN NIGHTTIME COUGH DM) 237 Ml Liquid 5 ML PO Q6HR, #90 ML Prov: Pete Meneses MD 08/11/18 Levofloxacin* (LEVAQUIN*) 500 Mg Tablet 500 MG ORAL DAILY, #7 TAB Prov: Pete Meneses MD 08/11/18 Pete Meneses MD Aug 11, 2018 08:22
[2018-08-11] MEDS ORDERED: ROBITUSSIN NIG237 ML PO (10:03)
[2018-08-11] MEDS ORDERED: LEVAQUIN500 MG ORAL (10:03)
[2018-08-11 10:22] VITALS: BP 119/75
--- NOTE | 2018-08-11 10:45 | Diagnostic Imaging Report ---
Indication: Dyspnea Comparison: 06/16/2018 2 views of the chest obtained. Findings: Cardiomediastinal silhouette and pulmonary vascularity are within normal limits for age. The diaphragmatic contour is smooth and costophrenic angles are sharp. No pleural effusions are identified. The bones are unremarkable. Impression: No acute disease
--- NOTE | 2018-08-12 16:42 | Cardiology Report ---
APPROVED REPORT EKG Measurement Heart [id number] [place] [id number] [id number] Normal sinus rhythm Normal ECG
== END 2018-08-11 10:23 | disposition home or self-care (01) ==
LOC: EMR 08:35
DX: R04.2 Hemoptysis (principal); J42 Unspecified chronic bronchitis; L40.9 Psoriasis, unspecified; M19.90 Unspecified osteoarthritis, unspecified site; Z88.1 Allergy status to other antibiotic agents; Z88.2 Allergy status to sulfonamides; Z91.018 Allergy to other foods; Z86.69 Personal history of other diseases of the nervous system and sense organs
CPT/HCPCS: 71046; 93005; 99283

== ENCOUNTER 2018-08-29 07:49 | Emergency (ER) | payer MEDICARE, OTHER ==
[~2018-08-29] VITALS: Ht 165.1 cm; Wt 104.8 kg
[~2018-08-29 07:49] MED LIST changes: +ROBITUSSIN NIG237 ML PO
[2018-08-29 08:10] VITALS: BP 132/81
[2018-08-29 08:42] VITALS: BP 132/81
--- NOTE | 2018-08-29 15:02 | Emergency Room Report ---
History of Present Illness General Chief Complaint: Upper Extremity Injury Source: Patient Present Illness HPI The patient was having increased pain to the right shoulder worse with movements. The patient presented this worse with abduction greater than 90. She denies any numbness to her hands. She reports having normal strength. The patient presented been seen and had CT imaging of her chest which showed evidence of hilar adenopathy. The patient denies any fever. She reports having prior episodes of hemoptysis. The patient states that she had previous history of psoriasis Allergies: Coded Allergies: ERYTHROMYCIN BASE (Verified Allergy, Unknown, 05/28/18) SULFA (SULFONAMIDE ANTIBIOTICS) (Unverified Allergy, Unknown, 05/28/18) Uncoded Allergies: EGGPLANT (Allergy, Unknown, 05/16/18) Patient History Past Medical History: see triage record Reviewed Nursing Documentation: PMH: Agreed; PSxH: Agreed Nursing Documentation-PMH Past Medical History: No History, Except For Hx Cardiac Problems: No - OSTEOARTHRITIS, psoriasis Hx Hypertension: No Hx Pacemaker: No Hx Asthma: No - Bronchitis Hx COPD: No Hx Diabetes: No Hx Cancer: No Hx Gastrointestinal Problems: No Hx Dialysis: No Hx Neurological Problems: No Hx Cerebrovascular Accident: No Hx Seizures: Yes Review of Systems All Other Systems: negative except mentioned in HPI Physical Exam Vital Signs Date Time Temp Pulse Resp B/P (MAP) Pulse Ox O2 Delivery O2 Flow Rate FiO2 08/29/18 07:53 98.1 80 18 134/80 97 Room Air Sp02 EP Interpretation: reviewed, normal General Appearance: normal inspection, well appearing, no apparent distress, alert, GCS 15, obese Head: atraumatic ENT: normal ENT inspection, hearing grossly normal, normal voice Neck: normal inspection, full range of motion, supple, no bony tend Respiratory: normal inspection, lungs clear, normal breath sounds, no respiratory distress, no retraction, no wheezing Cardiovascular #1: regular rate, rhythm, no edema Gastrointestinal: normal inspection, normal bowel sounds, non tender, soft, no guarding, no hernia Genitourinary: no CVA tenderness Musculoskeletal: normal inspection, back normal, decreased range of motion - right shoulder unable to abduct past 90 degrees Neurologic: normal inspection, alert, oriented x3, responsive, supervisor hot dip tinning III-XII nml as tested, speech normal Psychiatric: normal inspection, judgement/insight normal, mood/affect normal Skin: normal inspection, normal color, no rash Medical Decision Making Diagnostic Impression: Primary Impression: Shoulder pain, right ER Course Patient is a for right shoulder pain. Differential diagnoses included was not limited to rotator cuff tendinitis, malignancy, fracture, dislocation, a.c. separation, septic joint. Patient has a benign exam and does not appear to require any further imaging or laboratory testing at this time. Patient was noted to have had decreased range of motion her shoulder which likely represents chronic tendinitis. Patient was noted to have some prior history of lymphadenopathy and was advised to see her primary care physician for further workup. The patient is advised to return if she began having chest pain difficult to breathing or other concerns. This report is dictated with [employer] r[employer] picu software which may occasionally lead to discrepancies related to use of this software. Last Vital Signs Date Time Temp Pulse Resp B/P (MAP) Pulse Ox O2 Delivery O2 Flow Rate FiO2 08/29/18 08:42 98.1 80 18 132/81 97 Room Air Status: improved Disposition: HOME, SELF-CARE Condition: Stable Patient Instructions: Shoulder Pain Additional Instructions: Follow up with your primary care physician for further evaluation of lymph nodes and further workup of shoulder pain. Return if any worsening of condition. Dino Mills MD Aug 29, 2018 15:02
== END 2018-08-29 08:45 | disposition home or self-care (01) ==
LOC: EMR 08:15
DX: M25.511 Pain in right shoulder (principal); Z88.2 Allergy status to sulfonamides; Z91.018 Allergy to other foods
CPT/HCPCS: 99282

== ENCOUNTER 2018-11-19 17:09 | Emergency (ER) | payer MEDICARE, OTHER ==
[~2018-11-19] VITALS: Ht 165.1 cm; Wt 106.1 kg
[2018-11-19 17:14] VITALS: BP 123/79
--- NOTE | 2018-11-19 17:14 | NUR ---
ED Nurse Note: Pt came in due to coughing with flu like symptoms since saturday. sates fever at home. Afebrile in triage 98.6 F. P AAO x4, ambulatory. No respiratory distress.
[2018-11-19] MEDS ORDERED: Benzonatate 100mg Perles ORAL ONE (17:45)
--- NOTE | 2018-11-19 17:46 | Emergency Room Report ---
History of Present Illness General Chief Complaint: Upper Respiratory Illness Source: Medical Record Present Illness HPI 53-year-old female patient presents the ER complaining of cough, chest pain, shortness of breath for the past few days. Reports chest pain is reproducible, states that occurs with cough. Denies radiation of pain. Reports shortness of breath secondary to coughing symptoms. Denies history of asthma or heart attack. Reports history of pulmonary lymph nodes, states she has a follow-up appointment with her primary care doctor next month for further evaluation and treatment of these nodes. Denies fever. Denies history of smoking. Denies calf pain. Denies recent. Immobilization. Denies history of cancer. Denies taking any hormone control medications. Reports cough with sputum. Denies hemoptysis. Reports sore throat during this time. Denies other aggravating or relieving factors. Reports history of bronchitis. Denies taking blood thinner medication. Denies calf pain. Allergies: Coded Allergies: ERYTHROMYCIN BASE (Verified Allergy, Unknown, 05/28/18) SULFA (SULFONAMIDE ANTIBIOTICS) (Unverified Allergy, Unknown, 05/28/18) Uncoded Allergies: EGGPLANT (Allergy, Unknown, 05/16/18) Patient History Past Medical History: see triage record Last Menstrual Period: menopause Reviewed Nursing Documentation: PMH: Agreed; PSxH: Agreed Nursing Documentation-PMH Past Medical History: No History, Except For Hx Cardiac Problems: No - OSTEOARTHRITIS, psoriasis Hx Hypertension: No Hx Pacemaker: No Hx Asthma: No - Bronchitis Hx COPD: No Hx Diabetes: No Hx Cancer: No Hx Gastrointestinal Problems: No Hx Dialysis: No Hx Neurological Problems: No Hx Cerebrovascular Accident: No Hx Seizures: Yes Review of Systems All Other Systems: negative except mentioned in HPI Physical Exam Vital Signs Date Time Temp Pulse Resp B/P (MAP) Pulse Ox O2 Delivery O2 Flow Rate FiO2 11/19/18 17:14 84 16 Room Air 11/19/18 17:14 98.6 123/79 95 Sp02 EP Interpretation: reviewed, normal General Appearance: well appearing, no apparent distress, alert, GCS 15, non- toxic Head: normocephalic, atraumatic Eyes: bilateral eye normal inspection, bilateral eye PERRL ENT: hearing grossly normal, normal pharynx, no angioedema, normal voice, TMs + canals normal, uvula midline, moist mucus membranes, other - uvula midline Neck: full range of motion, no meningismus Respiratory: lungs clear, normal breath sounds, no rhonchi, no respiratory distress, no accessory muscle use, no wheezing, speaking full sentences Cardiovascular #1: regular rate, rhythm, no edema Genitourinary: no CVA tenderness Musculoskeletal: back normal, digits/nails normal, gait/station normal, normal range of motion, non-tender, [place]'s Sign negative Neurologic: alert, oriented x3, responsive, motor strength/tone normal, sensory intact Psychiatric: mood/affect normal Skin: no rash Lymphatic: no adenopathy Medical Decision Making PA Attestation Dr. Vasquez is my supervising Physician whom patient management has been discussed with. Diagnostic Impression: Primary Impression: Upper respiratory infection Additional Impressions: Elevated d-dimer Hilar lymphadenopathy Atypical pneumonia ER Course Pt presents to ED c/o chest pain, shortness of breath, cough, flulike symptoms. DDX considered but are not limited to influenza, viral URI, pneumonia, costochondritis, pericarditis, VT, CHF, pneumothorax. On PE, chest is TTP; chest pain likely musculoskeletal in nature, does not require cardiac workup at this time. Patient instructed to take NSAIDs as needed for pain symptoms. VITAL SIGNS are WNL, patient is afebrile. ER COURSE: Provided with pain medication. CXR negative for acute disease, consistent with previous chest x-ray on file. EKG shows no ST elevation or afib. Lungs clear to auscultation, no wheezes, rhonci or rales. patient afebrile. pulse ox 95, patient does not require breathing treatment at this time. CBC and CMP unremarkable, no elevation WBCs or LFTs D-dimer elevated, will order CTA to rule out PE BNP negative low suspicion for CHF Troponin negative low suspicion for VT CTA shows No pulmonary embolus identified. No aortic aneurysm or dissection. Nonspecific enlarged mediastinal and hilar lymph nodes, slightly increased compared to prior exam. Nonspecific mildly prominent periesophageal lymph nodes. Small hypodensities in the liver are too small to definitively characterize. Postsurgical changes versus calcifications in the right adrenal gland. Azygos lobe. Discuss results with the patient. Provided patient with copy of results. Instructed patient to followup with PCP and discuss results of report with patient, discuss need for further treatment and referral. Pain reproducible, chest TTP, CXR and EKG negative, low suspicion for cardiac etiology of symptoms, likely MSK in nature. Advised patient to followup with PCP and discuss referral to cardiology for stress testing and further evaluation. Will provide patient with antibiotics to cover for possible pneumonia. Symptomatic treatment. drink plenty of fluids. Followup with PCP for further treatment and/or referral as needed. ER precautions given. DISCHARGE: At this time pt is stable for d/c to home. Patient is resting comfortably, in no acute distress, nontoxic appearing. Patient to take medications as instructed Will provide with patient care instructions and any necessary prescriptions. Care plan and follow-up instructions provided. Patient instructed to follow-up with primary care provider in 3 - 5 days. Patient questions asked and answered. Patient reports understanding and agreement to treatment plan. ER precautions given. Patient instructed to return to ER immediately for any new or worsening of symptoms including but not limited to increasing SOB, persistent fever, intractable vomiting. - Please note that this Emergency Department Report was dictated using [employer] scanner operator technology software, occasionally this can lead to erroneous entry secondary to interpretation by the dictation equipment. Labs Test 11/19/18 18:15 White Blood Count 5.6 K/UL (4.8-10.8) Red Blood Count 4.46 M/UL (4.20-5.40) Hemoglobin 14.0 G/DL (12.0-16.0) Hematocrit 42.4 % (37.0-47.0) Mean Corpuscular Volume 95 FL (80-99) Mean Corpuscular Hemoglobin 31.3 PG (27.0-31.0) Mean Corpuscular Hemoglobin Concent 32.9 G/DL (32.0-36.0) Red Cell Distribution Width 12.2 % (11.6-14.8) Platelet Count 305 K/UL (150-450) Mean Platelet Volume 4.9 FL (6.5-10.1) Neutrophils (%) (Auto) 54.9 % (45.0-75.0) Lymphocytes (%) (Auto) 33.4 % (20.0-45.0) Monocytes (%) (Auto) 10.1 % (1.0-10.0) Eosinophils (%) (Auto) 0.4 % (0.0-3.0) Basophils (%) (Auto) 1.1 % (0.0-2.0) D-Dimer 0.78 mg/L FEU (0.00-0.49) Sodium Level 135 MMOL/L (136-145) Potassium Level 3.5 MMOL/L (3.5-5.1) Chloride Level 100 MMOL/L (98-107) Carbon Dioxide Level 27 MMOL/L (21-32) Anion Gap 8 mmol/L (5-15) Blood Urea Nitrogen 19 mg/dL (7-18) Creatinine 1.0 MG/DL (0.55-1.30) Estimat Glomerular Filtration Rate 58.2 mL/min (>60) Glucose Level 105 MG/DL (74-106) Calcium Level 9.2 MG/DL (8.5-10.1) Total Bilirubin 0.2 MG/DL (0.2-1.0) Aspartate Amino Transf (AST/SGOT) 33 U/L (15-37) Alanine Aminotransferase (ALT/SGPT) 36 U/L (12-78) Alkaline Phosphatase 76 U/L (46-116) Troponin I 0.000 ng/mL (0.000-0.056) Pro-B-Type Natriuretic Peptide 6 pg/mL (0-125) Total Protein 7.5 G/DL (6.4-8.2) Albumin 3.3 G/DL (3.4-5.0) Globulin 4.2 g/dL Albumin/Globulin Ratio 0.8 (1.0-2.7) EKG Diagnostic Results Rate: normal Rhythm: NSR ST Segments: no acute changes ASA given to the pt in ED: No PA Scribe Nain Levin PA-C Rhythm Strip Diag. Results EP Interpretation: yes Rate: 73 Rhythm: NSR, no PVC's, no ectopy PA Scribe Nain Levin PA-C Chest X-Ray Diagnostic Results Chest X-Ray Diagnostic Results : Chest X-Ray Ordered: Yes # of Views/Limited/Complete: 1 View Indication: Chest Pain EP Interpretation: Yes PA Xray: Interpretation reviewed Interpretation: no consolidation, no effusion, no pneumothorax, no acute cardiopulmonary disease, other - hilar lymphadenopathy Impression: No acute disease PA Scribe Nain Levin PA-C CT/MRI/US Diagnostic Results CT/MRI/US Diagnostic Results : Imaging Test Ordered: CTA chest Impression Comparison is made to prior CT chest on 05/28/2018. No pulmonary embolus identified. No aortic aneurysm or dissection. Nonspecific enlarged mediastinal and hilar lymph nodes, slightly increased compared to prior exam. Nonspecific mildly prominent periesophageal lymph nodes. Small hypodensities in the liver are too small to definitively characterize. Postsurgical changes versus calcifications in the right adrenal gland. Azygos lobe. Last Vital Signs Date Time Temp Pulse Resp B/P (MAP) Pulse Ox O2 Delivery O2 Flow Rate FiO2 11/19/18 17:14 98.6 84 16 123/79 95 Room Air Status: improved Disposition: HOME, SELF-CARE Condition: Stable Scripts Levofloxacin* (LEVAQUIN*) 750 Mg Tablet 750 MG ORAL DAILY for 5 Days, #5 TAB Prov: Darryl Levin 11/19/18 Albuterol Sulfate* (ALBUTEROL SULFATE MDI*) 8.5 Gm Hfa.aer.ad 2 PUFF INH Q6H, #1 INH 0 Refills Prov: Darryl Levin 11/19/18 Benzonatate* (TESSALON PERLE*) 100 Mg Capsule 100 MG ORAL THREE TIMES A DAY, #24 PERLE Prov: Darryl Levin 11/19/18 Guaifen/Phenyleph/Acetaminophn (Sudafed PE Pressure+Pain+Mucus) 1 Each Tablet 1 EACH PO TID, #24 TAB Prov: Darryl Levin 11/19/18 Patient Instructions: Community-Acquired Pneumonia, Adult, D-Dimer Test, Lymphadenopathy, Upper Respiratory Infection, Adult Additional Instructions: Followup with primary care provider in 3 -5 days. Take medications as directed. Patient questions asked and answered. ER precautions given, patient instructed to return to ER immediately for any new or worsening of symptoms. Darryl Levin Nov 19, 2018 17:46
--- NOTE | 2018-11-19 18:20 | NUR ---
ED Nurse Note: Collected blood and sent.
[2018-11-19 18:47] LABS: BASOPHILS % (AUTO) 1.1 % (0.0-2.0); EOSINOPHILS % (AUTO) 0.4 % (0.0-3.0); HEMATOCRIT 42.4 % (37.0-47.0); LYMPHOCYTES % (AUTO) 33.4 % (20.0-45.0); MEAN CORPUSCULAR VOLUME 95 FL (80-99); MONOCYTES % (AUTO) 10.1 % (1.0-10.0); NEUTROPHILS % (AUTO) 54.9 % (45.0-75.0); PLATELET COUNT 305 K/UL (150-450); RED BLOOD COUNT 4.46 M/UL (4.20-5.40); RED CELL DISTRIBUTION WIDTH 12.2 % (11.6-14.8); WHITE BLOOD COUNT 5.6 K/UL (4.8-10.8)
[2018-11-19 19:20] VITALS: BP 120/78
[2018-11-19 19:24] LABS: ANION GAP 8 mmol/L (5-15); BLOOD UREA NITROGEN 19 mg/dL (7-18); CALCIUM 9.2 MG/DL (8.5-10.1); CARBON DIOXIDE 27 MMOL/L (21-32); CHLORIDE 100 MMOL/L (98-107); POTASSIUM 3.5 MMOL/L (3.5-5.1); SODIUM 135 MMOL/L (136-145)
--- NOTE | 2018-11-19 19:28 | NUR ---
HAND-OFF: Report given to Bc LOPEZ.
[2018-11-19] MEDS ORDERED: Isovue-370 150ml vial INJ PRN (19:30)
[2018-11-19 19:40] LABS: ALANINE AMINOTRANSFERASE 36 U/L (12-78); ALBUMIN 3.3 G/DL (3.4-5.0); ALBUMIN/GLOBULIN RATIO 0.8 (1.0-2.7); ALKALINE PHOSPHATASE 76 U/L (46-116); ASPARTATE AMINO TRANSFERASE 33 U/L (15-37); BILIRUBIN,TOTAL 0.2 MG/DL (0.2-1.0)
[2018-11-19 21:18] VITALS: BP 122/79
[2018-11-19] MEDS ORDERED: SUDAFED PE PRE1 EAC3 PO (21:53)
[2018-11-19] MEDS ORDERED: ALBUTEROL SULF8.5 GM INH (21:53)
[2018-11-19] MEDS ORDERED: TESSALON PERLE100 MG ORAL (21:53)
[2018-11-19] MEDS ORDERED: LEVAQUIN750 MG ORAL (21:53)
[2018-11-19 22:06] VITALS: BP_SYST 117; BP_SYST 122; BP_DIAS 75; BP_DIAS 79
--- NOTE | 2018-11-19 22:08 | NUR ---
ED Nurse Note: Pt cleared by Health Care Provider for discharge. DC instructions/prescriptions given and explained to pt and verbalized understanding of teachings. All medical devices such as ID band removed. Pt AAO x4, ambulatory and left with all personal belongings. pt is instructed to follow up with primary MD as soon as possible. pt is insturcted to return and seek medical attention if reoccurance of symptoms. pt has left with all DC notes and has been able to teach back all instructions.
--- NOTE | 2018-11-20 10:11 | Diagnostic Imaging Report ---
Indication: Chest pain Technique: One view of the chest Comparison: 08/11/2018 Findings: The less optimal inspiration currently. Hilar prominence likely reflects lymphadenopathy described on CT scan. Heart is borderline enlarged. The lungs and pleural spaces are clear. Impression: No acute process Hilar lymphadenopathy, also described on prior CTs Borderline cardiomegaly
--- NOTE | 2018-11-20 17:39 | Diagnostic Imaging Report ---
ndication: Cough, chest pain Technique: IV administration nonionic contrast. Spiral acquisitions obtained from the lung bases to the lung apices. Multiplanar and 3-D reconstructions were generated. Total dose length product 1202.93 mGycm. CTDIvol(s) 33.86 mGy. Dose reduction achieved using automated exposure control Comparison: 05/28/2018 Findings: There is good quality opacification of the pulmonary arteries. No intraluminal filling defects or other findings to suggest acute pulmonary embolus demonstrated. No evidence of right ventricular dilatation. No evidence of pulmonary arterial dilatation. Normal caliber thoracic aorta without evidence of dissection. Normal branching anatomy of the great neck vessels. Normal caliber proximal upper abdominal visceral vessels. The lungs are clear. No infiltrates, effusions, masses, or nodules. Azygos lobe and fissure noted-normal anatomic variant. There is fairly extensive bilateral hilar lymphadenopathy, with confluent nodes measuring up to 4.2 cm long axis dimension in the left pulmonary hilum. There is also mediastinal lymphadenopathy, with the largest node being a 3.7 x 2.8 cm subcarinal node. No definite axillary or supraclavicular mass or adenopathy demonstrated. This agrees with the preliminary interpretation provided overnight by [facility] service. Nodes are stable or minimally increased as compared to the previous study The included portions of the thyroid are unremarkable. The esophagus is unremarkable. The heart size is normal. No pericardial effusion. Included upper abdominal anatomy demonstrates a cyst in segment 5 of the liver. Calcifications or surgical staple line is seen in or adjacent to the right adrenal Impression: No evidence of acute pulmonary embolus Bilateral hilar and mediastinal lymphadenopathy. Stable or minimally increased since previous exam. As previously, differential considerations include infectious or noninfectious inflammatory process, primary lymphoproliferative disorder, metastatic neoplasm. Only minimal enlargement is more suggestive of a benign process. Correlate with clinical findings No acute pulmonary process Incidental findings of small right hepatic lobe cyst, calcifications or surgical angelo in or adjacent to the right adrenal This agrees with the preliminary interpretation provided overnight by [facility] telerad[facility] service. The CT scanner at [facility] is accredited by the [employer] and the scans are performed using protocols designed to limit radiation exposure to as low as reasonably achievable to attain images of sufficient resolution adequate for diagnostic evaluation.
--- NOTE | 2018-11-22 16:16 | Cardiology Report ---
APPROVED REPORT EKG Measurement Heart [id number] Normal sinus rhythm Low voltage QRS Borderline ECG
[2018-11-26] MEDS ORDERED: COLACE100 MG ORAL (15:21)
[2018-11-26] MEDS ORDERED: ANUSOL-HC30 GM RC (15:21)
[2018-11-26] MEDS ORDERED: ADULT WAL-100 MG/5 M ORAL (15:21)
== END 2018-11-19 22:10 | disposition home or self-care (01) ==
LOC: EMR 17:47
DX: J06.9 Acute upper respiratory infection, unspecified (principal); R79.1 Abnormal coagulation profile; R59.1 Generalized enlarged lymph nodes; R56.9 Unspecified convulsions; M19.90 Unspecified osteoarthritis, unspecified site; Z88.1 Allergy status to other antibiotic agents; Z88.2 Allergy status to sulfonamides; Z91.018 Allergy to other foods
CPT/HCPCS: 36415; 71045; 71275; 80053; 83880; 84484; 85025; 85379; 93005; 99284; Q9967

== ENCOUNTER → 2018-11-26 | Emergency (ER) | payer MEDICARE ==
[~2018-11-26] VITALS: Ht 165.1 cm; Wt 106.1 kg
[~2018-11-26] MED LIST changes: +ADULT WAL-100 MG/5 M ORAL; +ANUSOL-HC30 GM RC; +COLACE100 MG ORAL; +LEVAQUIN750 MG ORAL; +SUDAFED PE PRE1 EAC3 PO
--- NOTE | 2018-11-26 15:00 | NUR ---
ED Nurse Note: pt walked in c/o cough for one wk and dark stool, denies abd pain. afebrile. pt AA&ox4, gcs=15, skin warm and dry, resp even and unlabored on RA, -n/v/d, ambulates w/ steady gait, will cont monitor.
--- NOTE | 2018-11-26 15:19 | Emergency Room Report ---
History of Present Illness General Chief Complaint: General Complaint Source: Medical Record Present Illness HPI Patient is a 53-year-old female presented after increased cough and congestion. Patient reports having increased nonproductive cough. Patient denies being a current smoker. She states she is had a prior history of marijuana smoker. Smoking but has quit for approximately 3 months. 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 She states she has been having some increased rectal bleeding for approximately 3-4 days. She has had similar symptoms for several months.Patient reports having some increased generalized weakness. Patient denies any vomiting. Allergies: Coded Allergies: ERYTHROMYCIN BASE (Verified Allergy, Unknown, 05/28/18) SULFA (SULFONAMIDE ANTIBIOTICS) (Unverified Allergy, Unknown, 05/28/18) Uncoded Allergies: EGGPLANT (Allergy, Unknown, 05/16/18) Patient History Past Medical History: see triage record Last Menstrual Period: menopause Reviewed Nursing Documentation: PMH: Agreed; PSxH: Agreed Nursing Documentation-PMH Past Medical History: No History, Except For Hx Cardiac Problems: No - OSTEOARTHRITIS, psoriasis Hx Hypertension: No Hx Pacemaker: No Hx Asthma: No - Bronchitis Hx COPD: No Hx Diabetes: No Hx Cancer: No Hx Gastrointestinal Problems: No Hx Dialysis: No Hx Neurological Problems: No Hx Cerebrovascular Accident: No Hx Seizures: Yes Review of Systems All Other Systems: negative except mentioned in HPI Physical Exam Vital Signs Date Time Temp Pulse Resp B/P (MAP) Pulse Ox O2 Delivery O2 Flow Rate FiO2 11/26/18 14:44 97.9 96 18 126/88 96 Room Air Sp02 EP Interpretation: reviewed, normal General Appearance: normal inspection, well appearing, no apparent distress, alert, GCS 15 Head: atraumatic ENT: normal ENT inspection, hearing grossly normal, normal voice Neck: normal inspection, full range of motion, supple, no bony tend Respiratory: normal inspection, lungs clear, normal breath sounds, no respiratory distress, no retraction, no wheezing Cardiovascular #1: regular rate, rhythm, no edema Gastrointestinal: normal inspection, normal bowel sounds, non tender, soft, no guarding, no hernia Rectal: normal rectal tone, heme negative stool, hemorrhoids Genitourinary: no CVA tenderness Musculoskeletal: normal inspection, back normal, normal range of motion Neurologic: normal inspection, alert, oriented x3, responsive, real time trader III-XII nml as tested, motor strength/tone normal, speech normal Psychiatric: normal inspection, judgement/insight normal, mood/affect normal Skin: normal inspection, normal color, no rash Medical Decision Making Diagnostic Impression: Primary Impression: Viral respiratory infection Additional Impression: Hemorrhoids ER Course . Patient presented for cough and rectal bleeding. Differential diagnosis include was not limited to pneumonia, bronchitis, viral respiratory infection among others. Patient has a benign exam and does not appear to require any further imaging or laboratory testing at this time. Patient appears to be in no apparent distress. Lungs are clear. Patient was given prescription for medications for symptom medic treatment of cough and hemorrhoids. Patient is advised to recheck with primary care physician for further evaluation Last Vital Signs Date Time Temp Pulse Resp B/P (MAP) Pulse Ox O2 Delivery O2 Flow Rate FiO2 11/26/18 14:44 97.9 96 18 126/88 96 Room Air Status: improved Disposition: HOME, SELF-CARE Condition: Stable Dino Mills MD Nov 26, 2018 15:19
[2018-11-26 15:35] VITALS: BP 121/88
[2018-11-26 15:36] VITALS: BP 122/80
--- NOTE | 2018-11-26 15:36 | NUR ---
ED Nurse Note: pt is cleared to be d/c per ERMD, pt provided w/ discharge&aftercare instruction w/ prescription, pt education done via discussion and hand out, wristband removed, pt advised to follow up with pcp or return to ED if sx worsen or new sx develop, pt verbalized understanding and agrees with plan, vss, airway intact, resp even and unlabored on RA, ambulatory w/ steady gait, all belongings left w/ pt.
== END | disposition home or self-care (01) ==
LOC: EMR 15:21
DX: B34.9 Viral infection, unspecified (principal); K64.9 Unspecified hemorrhoids; M19.90 Unspecified osteoarthritis, unspecified site
CPT/HCPCS: 99282

== ENCOUNTER 2019-02-03 08:22 | Emergency (ER) | payer MEDICARE, OTHER ==
[~2019-02-03] VITALS: Ht 165.1 cm; Wt 106.1 kg
--- NOTE | 2019-02-03 08:56 | NUR ---
ED Nurse Note: PT WALKED IN TO ER TODAY FROM HOME. AOX4. PT C/O SORE THROAT X YESTERDAY. PT DENIES FEVER, COUGH, OR RUNNY NOSE. PT IS CONCERNED BECAUSE SHE HAS A LUNG BIOPSY SCHEDULED FOR TOMORROW AND WANTS TO MAKE SURE SHE IS IN GOOD HEALTH. PT AFEBRILE AT BEDSIDE - ORAL TEMP: 98.1F.
[2019-02-03 08:58] VITALS: BP 132/88
[2019-02-03] MEDS ORDERED: LIDOCAINE VISC100 ML ORAL (09:03)
--- NOTE | 2019-02-03 09:05 | NUR ---
ED Nurse Note: STREP SCREEN CANCELLED PER DR. VILLELA
[2019-02-03] MEDS ORDERED: AMOXICILLIN500 MG ORAL (09:06)
[2019-02-03 09:09] VITALS: BP 128/86
--- NOTE | 2019-02-03 09:09 | NUR ---
ED Nurse Note: PT SITTING PEACEFULLY IN BED IN NAD. AOX4. PRESCRIPTIONS AND DISCHARGE PAPERWORK EXPLAINED TO PT. PT VERBALIZES UNDERSTANDING AND ALL QUESTIONS ANSWERED. PRESCRIPTIONS AND DISCHARGE PAPERWORK GIVEN TO PT AND ID WRISTBAND REMOVED. PT WALKED OUT OF ER WITH STEADY GAIT AND ALL BELONGINGS.
--- NOTE | 2019-02-03 11:10 | Emergency Room Report ---
History of Present Illness General Chief Complaint: Sore Throat Source: Patient Present Illness HPI Patient is a 53-year-old female presented after increased sore throat. Patient had onset of symptoms over the past 1 day. She reports of increased difficulty with swallowing. She denies any fever she reports having some increased right- sided neck pain. Patient a prior history of lymphadenopathy and is scheduled for a lung biopsy. She denies any fever. She has not been losing any weight. Allergies: Coded Allergies: ERYTHROMYCIN BASE (Verified Allergy, Unknown, 05/28/18) SULFA (SULFONAMIDE ANTIBIOTICS) (Unverified Allergy, Unknown, 05/28/18) Uncoded Allergies: EGGPLANT (Allergy, Unknown, 05/16/18) Patient History Past Medical History: see triage record Reviewed Nursing Documentation: PMH: Agreed; PSxH: Agreed Nursing Documentation-PMH Past Medical History: No History, Except For Hx Cardiac Problems: No - OSTEOARTHRITIS, psoriasis Hx Hypertension: No Hx Pacemaker: No Hx Asthma: No - Bronchitis Hx COPD: No Hx Diabetes: No Hx Cancer: No Hx Gastrointestinal Problems: No Hx Dialysis: No Hx Neurological Problems: No Hx Cerebrovascular Accident: No Hx Seizures: Yes Review of Systems All Other Systems: negative except mentioned in HPI Physical Exam Vital Signs Date Time Temp Pulse Resp B/P (MAP) Pulse Ox O2 Delivery O2 Flow Rate FiO2 02/03/19 08:42 97.9 73 20 136/95 94 Room Air General Appearance: well appearing, no apparent distress, alert, GCS 15 Head: normocephalic, atraumatic ENT: hearing grossly normal, normal voice Neck: full range of motion, supple Respiratory: lungs clear, no respiratory distress, speaking full sentences Cardiovascular #1: normal inspection, normal peripheral pulses, regular rate, rhythm Gastrointestinal: normal inspection, non tender, soft Musculoskeletal: no calf tenderness Neurologic: normal inspection, alert, oriented x3, responsive, normal gait Psychiatric: mood/affect normal Skin: no rash Medical Decision Making Diagnostic Impression: Primary Impression: Uvulitis ER Course Patient presented for sore throat. Differential diagnosis included but was not limited to meningitis, exudative tonsillitis, retropharyngeal abscess, epiglottitis, strep pharyngitis Patient has a benign exam and does not appear to require any further imaging or laboratory testing at this time. Patient appears to have uvulitis. Patient will be given a prescription for oral antibiotics. She is advised to use salt water gargling. She is to return if she began having any concerns. Last Vital Signs Date Time Temp Pulse Resp B/P (MAP) Pulse Ox O2 Delivery O2 Flow Rate FiO2 02/03/19 09:09 98.2 75 19 128/86 98 Room Air Status: improved Disposition: HOME, SELF-CARE Condition: Stable Scripts Amoxicillin* (AMOXIL*) 500 Mg Capsule 500 MG ORAL THREE TIMES A DAY, #21 CAP Prov: Dino Mills MD 02/03/19 Lidocaine HCl 2% Viscous (Lidocaine HCl 2% Viscous) 100 Ml Solution 15 ML ORAL QID, #30 ML Prov: Dino Mills MD 02/03/19 Referrals: NON PHYSICIAN (PCP) Patient Instructions: Dino Cope MD Feb 03, 2019 11:10
== END 2019-02-03 09:10 | disposition home or self-care (01) ==
LOC: EMR 09:00
DX: K12.2 Cellulitis and abscess of mouth (principal); M54.2 Cervicalgia; Z88.2 Allergy status to sulfonamides; Z88.8 Allergy status to other drugs, medicaments and biological substances; Z91.018 Allergy to other foods; M19.90 Unspecified osteoarthritis, unspecified site; L40.9 Psoriasis, unspecified; G40.909 Epilepsy, unspecified, not intractable, without status epilepticus
CPT/HCPCS: 99282

== ENCOUNTER 2019-06-14 12:38 | Emergency (ER) | payer MEDICARE, OTHER ==
[~2019-06-14] VITALS: Ht 165.1 cm; Wt 113.4 kg
[~2019-06-14 12:38] MED LIST changes: +AMOXICILLIN500 MG ORAL; +LIDOCAINE VISC100 ML ORAL
[2019-06-14 12:42] VITALS: BP 118/77
--- NOTE | 2019-06-14 12:54 | NUR ---
ED Nurse Note: Pt came in due to bilateral eye tearing, burning sensation and swelling for weeks. Also c/o clear discharge from her eyes but no redness. AAO x4 and ambulatory.
[2019-06-14] MEDS ORDERED: REFRESH TEARS15 ML OP (13:28)
[2019-06-14] MEDS ORDERED: OFLOXACIN5 ML OPHTHALM (13:28)
[2019-06-14 13:38] VITALS: BP 125/76
--- NOTE | 2019-06-14 13:38 | NUR ---
ER DISCHARGE NOTE: Patient is cleared to be discharged per ERMD, pt is aox4, on room air, with stable vital signs. pt was given dc and prescription instructions, pt was able to verbalize understanding, pt id band removed. pt is able to ambulate with steady gait. pt took all belongings.
--- NOTE | 2019-06-14 16:16 | Emergency Room Report ---
History of Present Illness General Chief Complaint: Eye Problems Source: Medical Record Present Illness HPI Patient is a 53-year-old female presenting for bilateral eye redness, pain, and discharge. She denies any known sick contacts. Symptoms have persisted for 2 weeks. She has used hmzb-ikc-[id number] eyedrops which have helped. Her eyes were crusted shut this morning. Pain described as an 8 out of 10 burning sensation. Denies any other symptoms including N, V, F, chills, RM, blurred vision Allergies: Coded Allergies: ERYTHROMYCIN BASE (Verified Allergy, Unknown, 05/28/18) SULFA (SULFONAMIDE ANTIBIOTICS) (Unverified Allergy, Unknown, 05/28/18) Uncoded Allergies: EGGPLANT (Allergy, Unknown, 05/16/18) Patient History Last Menstrual Period: menopause Nursing Documentation-[facility] Past Medical History: No History, Except For Hx Cardiac Problems: No - OSTEOARTHRITIS, psoriasis Hx Hypertension: No Hx Pacemaker: No Hx Asthma: No - Bronchitis Hx COPD: No Hx Diabetes: No Hx Cancer: No Hx Gastrointestinal Problems: No Hx Dialysis: No Hx Neurological Problems: No Hx Cerebrovascular Accident: No Hx Seizures: Yes Review of Systems All Other Systems: negative except mentioned in HPI Physical Exam Vital Signs Date Time Temp Pulse Resp B/P (MAP) Pulse Ox O2 Delivery O2 Flow Rate FiO2 06/14/19 12:42 98.2 97 18 118/77 (91) 99 Room Air Sp02 EP Interpretation: reviewed, normal General Appearance: no apparent distress, alert, GCS 15, non-toxic Head: normocephalic, atraumatic Eyes: bilateral eye PERRL, bilateral eye EOMI, bilateral eye lid inflammation, bilateral eye Scleral Injection ENT: hearing grossly normal, normal pharynx, no angioedema, normal voice Neck: full range of motion, supple/symm/no masses Respiratory: chest non-tender, lungs clear, normal breath sounds, speaking full sentences Musculoskeletal: back normal, gait/station normal, normal range of motion, non- tender, no calf tenderness Neurologic: alert, oriented x3, responsive, motor strength/tone normal, sensory intact, speech normal Psychiatric: judgement/insight normal, memory normal, mood/affect normal, no suicidal/homicidal ideation Medical Decision Making PA Attestation Dr. Munson is my supervising physician. Patient management was discussed with my supervising physician Diagnostic Impression: Primary Impression: Conjunctivitis Qualified Codes: H10.33 - Unspecified acute conjunctivitis, bilateral ER Course Patient is a 53-year-old female presenting for bilateral eye redness, pain, and discharge. Differential diagnoses considered but not limited to allergic conjunctivitis, bacterial conjunctivitis, viral conjunctivitis, blepharitis, hordeolum Physical exam: Vitals within normal limits. No apparent distress HEENT: There is Bilat eye injection with yellow discharge. EOMI. PERRL Otherwise exam is unremarkable The patient will be discharged home with a prescription for ofloxacin with artificial tears and will follow up with PMD. ER precautions are given Last Vital Signs Date Time Temp Pulse Resp B/P (MAP) Pulse Ox O2 Delivery O2 Flow Rate FiO2 06/14/19 13:38 98.5 88 15 125/76 100 Room Air Status: improved Disposition: HOME, SELF-CARE Condition: Improved Scripts Carboxymethylcellulose Sodium (REFRESH TEARS) 15 Ml Drops 1 DROP OP PRN, #15 ML Prov: CT OSMAN P.A. 06/14/19 Ofloxacin (OFLOXACIN) 5 Ml Drops 1 DROP OPHTHALM Q4HR, #5 ML Prov: CT OSMAN P.A. 06/14/19 Referrals: [facility] (PCP) Patient Instructions: Bacterial Conjunctivitis Additional Instructions: I discussed my findings with the patient. All questions and concerns have been answered. Treatment and medication compliance have been addressed. I advised the patient that they need to follow up with Primary doctor in 3-5 days. Return to ED if symptoms worsen, new symptoms arise, or if needed for any reason. Patient verbalized understanding of discharge instructions. CT OSMAN Jun 14, 2019 16:16
== END 2019-06-14 13:38 | disposition home or self-care (01) ==
LOC: EMR 13:33
DX: H10.33 Unspecified acute conjunctivitis, bilateral (principal); M19.90 Unspecified osteoarthritis, unspecified site; Z88.1 Allergy status to other antibiotic agents; Z88.2 Allergy status to sulfonamides; Z91.018 Allergy to other foods
CPT/HCPCS: 99282

== ENCOUNTER 2019-06-19 20:49 | Emergency (ER) | payer MEDICARE, OTHER ==
[~2019-06-19] VITALS: Ht 165.1 cm; Wt 114.8 kg
[~2019-06-19 20:49] MED LIST changes: +OFLOXACIN5 ML OPHTHALM; +REFRESH TEARS15 ML OP
[2019-06-19 21:05] VITALS: BP 117/69
--- NOTE | 2019-06-19 21:05 | NUR ---
ED Nurse Note: Patient walked in to ER c/o SOB. AAO x4, VSS at this time, skin is warm to touch.
[2019-06-19] MEDS ORDERED: PREDNISONE20 MG ORAL (21:25)
--- NOTE | 2019-06-19 21:25 | Emergency Room Report ---
History of Present Illness General Chief Complaint: Upper Respiratory Illness Source: Patient Present Illness HPI Is a 53-year-old female with history of psoriasis and sarcoidosis. She presents with chief complaint of eye redness is been ongoing for 6 weeks. Also with coughing and congestion for the last 3 to 4 days. Inhalers not helping. Eyedrops not helping. Antibiotic drops not helping. Denies any fever chills. Worse with inspiration. Denies any other complaint. Allergies: Coded Allergies: ERYTHROMYCIN BASE (Verified Allergy, Unknown, 05/28/18) SULFA (SULFONAMIDE ANTIBIOTICS) (Unverified Allergy, Unknown, 05/28/18) Uncoded Allergies: EGGPLANT (Allergy, Unknown, 05/16/18) Patient History Past Medical History: see triage record, old chart reviewed Past Surgical History: other Pertinent Family History: none Social History: Denies: smoking Last Menstrual Period: 4 years ago Now: No Immunizations: other Reviewed Nursing Documentation: PMH: Agreed; PSxH: Agreed Nursing Documentation-PMH Hx Cardiac Problems: No - OSTEOARTHRITIS, psoriasis Hx Hypertension: No Hx Pacemaker: No Hx Asthma: No - Bronchitis Hx COPD: No Hx Diabetes: No Hx Cancer: No Hx Gastrointestinal Problems: No Hx Dialysis: No Hx Neurological Problems: No Hx Cerebrovascular Accident: No Hx Seizures: Yes Review of Systems Eye: Reports: eye pain; Denies: blurred vision ENT: Denies: ear pain, nose congestion, throat swelling Respiratory: Reports: cough, shortness of breath Cardiovascular: Denies: chest pain, palpitations Gastrointestinal: Denies: abdominal pain, diarrhea, nausea, vomiting Musculoskeletal: Denies: back pain, joint pain Skin: Denies: rash Neurological: Denies: headache, numbness Endocrine: Denies: increased thirst, increased urine Hematologic/Lymphatic: Denies: easy bruising All Other Systems: negative except mentioned in HPI Physical Exam Vital Signs Date Time Temp Pulse Resp B/P (MAP) Pulse Ox O2 Delivery O2 Flow Rate FiO2 06/19/19 20:52 98.2 97 20 117/69 (85) 97 Room Air vitals normal Sp02 EP Interpretation: reviewed, normal General Appearance: well appearing, no apparent distress, alert Head: normocephalic, atraumatic Eyes: bilateral eye PERRL, bilateral eye EOMI, bilateral eye other - Bilateral lids with edema. Conjunctiva injected. ENT: hearing grossly normal, normal pharynx Neck: full range of motion, supple, no meningismus Respiratory: chest non-tender, lungs clear, normal breath sounds Cardiovascular #1: regular rate, rhythm, no murmur Gastrointestinal: normal bowel sounds, non tender, no mass, no organomegaly, no bruit, non-distended Musculoskeletal: back normal, gait/station normal, normal range of motion Psychiatric: mood/affect normal Medical Decision Making Diagnostic Impression: Primary Impression: Conjunctivitis Qualified Codes: H10.403 - Unspecified chronic conjunctivitis, bilateral Additional Impressions: Upper respiratory infection Qualified Codes: J06.9 - Acute upper respiratory infection, unspecified Sarcoidosis of lung ER Course Patient with exacerbation of her sarcoidosis. No evidence of respiratory distress. No evidence of pneumonia, ACS, PE, dissection to name a few. Will discharge home with prednisone. Last Vital Signs Date Time Temp Pulse Resp B/P (MAP) Pulse Ox O2 Delivery O2 Flow Rate FiO2 06/19/19 20:52 98.2 97 20 117/69 (85) 97 Room Air Status: unchanged Disposition: HOME, SELF-CARE Condition: Stable Scripts Prednisone* (PREDNISONE*) 20 Mg Tablet 40 MG ORAL DAILY, #21 TAB Prov: Connor Paz MD 06/19/19 Patient Instructions: Upper Respiratory Infection, Adult Additional Instructions: Continue with your inhaler. Follow-up with your doctor in 7 days for recheck. Return if symptoms worsen. Connor Paz MD Jun 19, 2019 21:25
[2019-06-19 21:34] VITALS: BP 117/69
--- NOTE | 2019-06-19 21:35 | NUR ---
ED Nurse Note: Pt cleared by health care Provider for discharge. DC instructions/prescription was given and explained to pt and verbalized understanding of teachings. All medical deviecs such as ID band removed. Pt is AAO x4, ambulatory and left with all personal belongings.
== END 2019-06-19 21:35 | disposition home or self-care (01) ==
LOC: EMR 21:15
DX: H10.403 Unspecified chronic conjunctivitis, bilateral (principal); J06.9 Acute upper respiratory infection, unspecified; D86.0 Sarcoidosis of lung; Z88.2 Allergy status to sulfonamides; Z91.018 Allergy to other foods; Z88.8 Allergy status to other drugs, medicaments and biological substances; M19.90 Unspecified osteoarthritis, unspecified site; L40.9 Psoriasis, unspecified; G40.909 Epilepsy, unspecified, not intractable, without status epilepticus
CPT/HCPCS: 99282; J7512

== ENCOUNTER 2019-07-18 09:35 | Emergency (ER) | payer MEDICARE, OTHER ==
[~2019-07-18] VITALS: Ht 165.1 cm; Wt 113.4 kg
[2019-07-18] MEDS ORDERED: LAMOTRIGINE100 M2 PO (09:44)
[2019-07-18] MEDS ORDERED: QUETIAPINE FUM300 MG ORAL (09:44)
[2019-07-18 10:00] VITALS: BP 125/84
--- NOTE | 2019-07-18 10:03 | NUR ---
ED Nurse Note:pt. c/o bilateral eye burning and irritation for months, visual acuity done
[2019-07-18] MEDS ORDERED: PATANOL1 DROP OD (10:04)
--- NOTE | 2019-07-18 10:08 | Emergency Room Report ---
History of Present Illness General Chief Complaint: Eye Problems Source: Patient Present Illness HPI Patient is a 53-year-old female presented after increased eye irritation and redness. She denies any contact lens use. She had been using multiple eyedrops of any improvement. She reports having burning sensation to both eyelids. She had not been having any visual changes. She prior history of sarcoidosis as well as psoriasis. Allergies: Coded Allergies: ERYTHROMYCIN BASE (Verified Allergy, Unknown, 05/28/18) SULFA (SULFONAMIDE ANTIBIOTICS) (Unverified Allergy, Unknown, 05/28/18) Uncoded Allergies: EGGPLANT (Allergy, Unknown, 05/16/18) Patient History Past Medical History: see triage record Reviewed Nursing Documentation: PMH: Agreed; PSxH: Agreed Nursing Documentation-PMH Hx Cardiac Problems: No - OSTEOARTHRITIS, psoriasis Hx Hypertension: No Hx Pacemaker: No Hx Asthma: No - Bronchitis Hx COPD: No Hx Diabetes: No Hx Cancer: No Hx Gastrointestinal Problems: No Hx Dialysis: No History Of Psychiatric Problem: Yes Hx Neurological Problems: No Hx Cerebrovascular Accident: No Hx Seizures: Yes - 30 YEARS AGO Review of Systems All Other Systems: negative except mentioned in HPI Physical Exam Vital Signs Date Time Temp Pulse Resp B/P (MAP) Pulse Ox O2 Delivery O2 Flow Rate FiO2 07/18/19 09:39 98.1 89 18 125/84 (98) 95 Room Air General Appearance: well appearing, no apparent distress, alert, GCS 15 Head: normocephalic, atraumatic Eyes: bilateral eye PERRL, bilateral eye other - conjunctival erythema, cobblestone ENT: hearing grossly normal, normal voice Neck: full range of motion, supple Respiratory: lungs clear, no respiratory distress, speaking full sentences Cardiovascular #1: normal peripheral pulses, regular rate, rhythm, no gallop Musculoskeletal: normal inspection Neurologic: normal inspection, alert, oriented x3, responsive, normal gait Psychiatric: normal inspection, mood/affect normal Skin: no rash Medical Decision Making Diagnostic Impression: Primary Impression: Blepharitis of both eyes ER Course She presented for bilateral eye irritation. Differential diagnosis include was not limited to conjunctivitis, blepharitis, bacterial infection among others. Patient has a benign exam and does not appear to require any imaging or laboratory testing at this time. Patient does not appear to have any evidence of visual changes or significant intraocular pathology. Patient had recent eye exam which was unremarkable per patient. Patient's appears to have some irritation to the conjunctiva of both eyes which may be allergic in nature. Patient was advised ophthalmology follow-up for further evaluation. Patient appears to be stable for discharge and outpatient management. Patient is advised to return if any worsening condition or if any changes in status that are concerning. This report is dictated with [employer] cost recovery technician software which may occasionally lead to discrepancies related to use of this software. Last Vital Signs Date Time Temp Pulse Resp B/P (MAP) Pulse Ox O2 Delivery O2 Flow Rate FiO2 07/18/19 10:00 98.1 73 18 125/84 95 Room Air Status: improved Disposition: HOME, SELF-CARE Condition: Stable Scripts Olopatadine (Patanol) 5 Ml Drops 1 DROP OD BID, #5 ML 0.2% Prov: Dino Mills MD 07/18/19 Patient Instructions: Blepharitis, [id number] Additional Instructions: Follow up with ophtalmology for recheck. Return if worse. Dino Mills MD Jul 18, 2019 10:08
[2019-07-18 10:30] VITALS: BP 125/84
--- NOTE | 2019-07-18 10:30 | NUR ---
ER DISCHARGE NOTE: Patient is cleared to be discharged per ERMD, pt is aox4, on room air, with stable vital signs. pt was given dc and prescription instructions, pt was able to verbalize understanding, pt is able to ambulate with steady gait. pt took all belongings.
== END 2019-07-18 10:40 | disposition home or self-care (01) ==
LOC: EMR 10:18
DX: H01.006 Unspecified blepharitis left eye, unspecified eyelid (principal); H01.003 Unspecified blepharitis right eye, unspecified eyelid; Z88.1 Allergy status to other antibiotic agents; Z88.2 Allergy status to sulfonamides; Z91.018 Allergy to other foods; M19.90 Unspecified osteoarthritis, unspecified site
CPT/HCPCS: 99282

== ENCOUNTER 2019-08-05 22:37 | Emergency (ER) | payer MEDICARE, OTHER ==
[~2019-08-05] VITALS: Ht 165.1 cm; Wt 113.4 kg
[~2019-08-05 22:37] MED LIST changes: +LAMOTRIGINE100 M2 PO; +PATANOL1 DROP OD; +QUETIAPINE FUM300 MG ORAL
[2019-08-05 22:40] VITALS: BP 133/76
--- NOTE | 2019-08-05 22:51 | NUR ---
ED Nurse Note: Patient came in by ambulance c/o of back pain 10/10 on pain scale. Pain started at 0500AM today. Denies taking any pain medication except marijuana. A/Ox4, patient able to ambulate with assistance.
[2019-08-05] MEDS: Ketorolac 30mg Inj IM ONE ×2 (23:00→23:26)
[2019-08-05] MEDS ORDERED: oxyCODONE HCL/Acetaminophen 5/325mg ORAL ONE (23:00)
[2019-08-05] MEDS ORDERED: Dexamethasone 4mg/ml vial IVP ONE (23:00)
--- NOTE | 2019-08-05 23:28 | Emergency Room Report ---
History of Present Illness General Chief Complaint: Lower Back Pain or Injury Source: Patient Present Illness HPI 54-year-old female history of sarcoidosis history of chronic back pain patient has been sleeping on a futon for a while, patient states she is moving out of her apartment, she states that she is been having pain for the past 24 hours, no history of IV drug use, no bowel bladder retention/incontinence no perianal numbness no focal weakness, patient endorses a sharp ache, left lateral aspect of her back worsened with movement alleviated with rest severity is severe intermittent, patient presents for evaluation. Allergies: Coded Allergies: ERYTHROMYCIN BASE (Verified Allergy, Unknown, 05/28/18) SULFA (SULFONAMIDE ANTIBIOTICS) (Unverified Allergy, Unknown, 05/28/18) Uncoded Allergies: EGGPLANT (Allergy, Unknown, 05/16/18) Patient History Past Medical History: see triage record Now: No Reviewed Nursing Documentation: PMH: Agreed; PSxH: Agreed Nursing Documentation-PMH Past Medical History: No History, Except For Hx Cardiac Problems: No - OSTEOARTHRITIS, psoriasis Hx Hypertension: No Hx Pacemaker: No Hx Asthma: No - Bronchitis Hx COPD: No Hx Diabetes: No Hx Cancer: No Hx Gastrointestinal Problems: No Hx Dialysis: No Hx Neurological Problems: No Hx Cerebrovascular Accident: No Hx Seizures: Yes - 30 YEARS AGO Review of Systems All Other Systems: negative except mentioned in HPI Physical Exam Vital Signs Date Time Temp Pulse Resp B/P (MAP) Pulse Ox O2 Delivery O2 Flow Rate FiO2 08/05/19 22:40 98.1 90 22 133/76 (95) 98 Room Air Sp02 EP Interpretation: reviewed, normal General Appearance: well appearing, no apparent distress, alert Head: normocephalic, atraumatic Eyes: bilateral eye PERRL, bilateral eye EOMI ENT: uvula midline, moist mucus membranes Neck: supple, thyroid normal, supple/symm/no masses Respiratory: lungs clear, no respiratory distress, no retraction, no accessory muscle use Cardiovascular #1: normal peripheral pulses, regular rate, rhythm, no edema, no gallop, no murmur Gastrointestinal: non tender, soft, no guarding, no rebound Musculoskeletal: other - No midline tenderness no step-offs, paraspinal tenderness left side, reproduces complaint, left lower lateral back panel padder to palpation Neurologic: alert, oriented x3 Psychiatric: mood/affect normal Skin: no rash, warm/dry Medical Decision Making Diagnostic Impression: Primary Impression: Low back pain Qualified Codes: M54.5 - Low back pain ER Course The patient presents with acute onset of back pain after lifting furniture today. Clinically this patient can be ruled out for serious pathology given there is a completely normal neurological exam, no history of IV drug use, and no history of bowel or bladder incontinence, no perianal numbness/tingling, no constipation or urinary retention. Once the patient's pain was adequately controlled, the patient was able to ambulate and be discharged in stable condition with anticipatory guidance provided. Cures checked Last Vital Signs Date Time Temp Pulse Resp B/P (MAP) Pulse Ox O2 Delivery O2 Flow Rate FiO2 08/05/19 22:40 98.1 90 22 133/76 (95) 98 Room Air Disposition: HOME, SELF-CARE Condition: Stable Scripts Lidocaine Patch* (Lidoderm Patch*) 1 Each Adh..patch 1 PATCH TOPIC DAILY, #7 PATCH 0 Refills Patch(es) may remain in place for up to 12 hours in any 24-hour period. Prov: Evens Munson MD 08/06/19 Methocarbamol* (ROBAXIN-750*) 750 Mg Tablet 750 MG PO QID, #28 TAB 0 Refills Prov: Evens Munson MD 08/06/19 Hydrocodone Bit/Acetaminophen 5-325* (NORCO 5-325*) 1 Each Tablet 1 TAB ORAL Q8HR PRN for For Pain, #12 TAB 0 Refills Prov: Evens Munson MD 08/06/19 Naproxen* (NAPROSYN*) 250 Mg Tablet 250 MG ORAL BID PRN for For Pain, #20 TAB 0 Refills Prov: Evens Munson MD 08/06/19 Referrals: NON PHYSICIAN (PCP) [facility] Patient Instructions: Back Pain, Adult Additional Instructions: The patient was provided with discharge instructions, notified to follow-up with a primary care doctor and or specialist in the next 24-48 hours, and to return to the ED if they have worsening of their symptoms. Please note that this report is being documented using [employer] technology. This can lead to erroneous entry secondary to incorrect interpretation by the dictating instrument. Evens Munson MD Aug 05, 2019 23:28
--- NOTE | 2019-08-05 23:35 | NUR ---
ED Nurse Note: Pt refused toradol IM. NOtified MD. Sharpe PO ordered.
--- NOTE | 2019-08-05 23:50 | NUR ---
HAND-OFF: Report given to JOHN Jovel.
[2019-08-06] MEDS ORDERED: LIDODERM700 M1 TOPIC (00:44)
[2019-08-06] MEDS ORDERED: NORCO 5-325 TA1 EACH ORAL (00:44)
[2019-08-06] MEDS ORDERED: NAPROXEN250 MG ORAL (00:44)
[2019-08-06] MEDS ORDERED: ROBAXIN-750750 MG PO (00:44)
[2019-08-06 00:51] VITALS: BP 140/76
--- NOTE | 2019-08-06 00:51 | NUR ---
ER DISCHARGE NOTE: Patient is cleared to be discharged per ERMD, pt is aox4, on room air, with stable vital signs. pt was given dc and prescription instructions, pt was able to verbalize understanding, pt id band removed without complications. pt is able to ambulate with steady gait with the use of cane. pt took all belongings.
== END 2019-08-06 00:51 | disposition home or self-care (01) ==
LOC: EDUNIT# 22:37 → EDBD 22:37 → EMR 23:01
DX: M54.5 Low back pain (principal); G89.29 Other chronic pain; Z88.1 Allergy status to other antibiotic agents; Z88.2 Allergy status to sulfonamides; Z91.018 Allergy to other foods; M19.90 Unspecified osteoarthritis, unspecified site
CPT/HCPCS: 96374; 99284; J1100; J1885